=== PATIENT | male | born 1955 | race Caucasian/White ===

== ENCOUNTER 2019-04-28 08:32 | Outpatient (CLI) | payer OTHER, SELFPAY ==
--- NOTE | ~2019-04-28 | CT_ITS ---
EXAMINATION: CTA chest DATE: 04/28/2019 09:04 INDICATION: Ascending aortic aneurysm. TECHNIQUE: Computed tomographic angiography (CTA) of the chest was performed with 100 mL Omnipaque-35 0 intravenous contrast. Automated exposure control and iterative reconstruction technique were employ ed. The dose-length product was 1067.06 mGy-cm. Maximum intensity projection 3D-reconstructions of th e aorta and other arteries were constructed by the technologist on a separate workstation. COMPARISON: Chest CT 08/28/2016 FINDINGS: The lungs demonstrate mild atelectasis. No pleural effusion. The heart size is normal. No p ericardial effusion. The aorta measures 4.2 cm at the sinuses of Valsalva, 3.9 cm at the sinotubular junction, 4.6 cm in the mid ascending aorta, 3.2 cm at the isthmus, and 2.9 cm in the mid descending aorta. There are no pathologically enlarged lymph nodes. There are old fractures of left eighth and n inth ribs. There is severe thoracic spondylosis. IMPRESSION: 1. Ectasia of ascending aorta measuring 4.6 cm, slightly increased from 4.4 cm on 08/28/2016. Reviewed, dictated and finalized at location A. PMENT SERVICE TECHNICIAN
[2019-04-28 08:58] LABS: Blood Urea Nitrogen 27 mg/dL (8-26); Estimated Glomerular Filt Rate > 60
== END 2019-04-28 08:33 | disposition home or self-care (01) ==
PROVIDERS: PCP Emergency Medicine; Visit Provider Internal Medicine Cardiovascular Disease
DX: I71.2 Thoracic aortic aneurysm, without rupture (principal)
CPT/HCPCS: 71275; Q9967

== ENCOUNTER 2019-10-23 18:26 | Inpatient (IN) | payer OTHER, SELFPAY ==
[2019-10-23] VITALS (13 sets, daily range): BP systolic 101–131; BP diastolic 65–93; PULSE 107–133; RESP 16–21; TEMP 36.2–36.9; O2SAT 94–97; BMI 37.8
--- NOTE | ~2019-10-23 | XR_ITS ---
EXAMINATION: XR chest 2V EXAM DATE: 10/23/2019 18:59 INDICATION: Weakness. TECHNIQUE: Frontal and lateral projections of the chest obtained and reviewed. Comparison is made to prior examination from 06/14/2013. FINDINGS: Heart is upper limits of normal in size. No confluent consolidation, pneumothorax or pleur al effusion suspected. There are mild bony degenerative changes. IMPRESSION: No acute cardiopulmonary findings. Reviewed, dictated and finalized at location A.
--- NOTE | ~2019-10-23 | CT_ITS ---
EXAMINATION: CTA chest PE protocol DATE: 10/24/2019 10:40 INDICATION: Dyspnea on exertion. Atrial fibrillation. TECHNIQUE: Computed tomography (CT) pulmonary angiogram of the chest was performed with 100 mL Omnipa que-350 intravenous contrast. Additional 3D reconstructions utilizing coronal maximum intensity proje ction (MIP) were performed. Automated exposure control and iterative reconstruction technique were em ployed. The dose-length product was 913.88 mGy-cm. COMPARISON: None FINDINGS: Excellent contrast opacification of the pulmonary arteries. There is mild streak artifact from dense contrast in the superior vena cava and right atrium. Mild to moderate scattered respiratory motion ar tifact most prominent in the lower lung zones where it limits evaluation of the basilar segmental and subsegmental pulmonary arteries. No definite pulmonary embolism. Mild dependent atelectasis in the b ilateral lower lobes. No pneumonia, pleural effusion or pneumothorax. Cardiomegaly. No pericardial ef fusion. Fusiform aneurysm of ascending thoracic aorta measuring up to 4.6 cm in maximal diameter. No pathologically enlarged thoracic lymphadenopathy. Diffuse hepatic steatosis. T2 hemangioma. IMPRESSION: 1. No pulmonary embolism although sensitivity is significantly decreased in the basilar segmental and subsegmental pulmonary arteries due to respiratory motion in the lower lungs. 2. Moderate cardiomegaly. 3. 4.6 cm fusiform ascending thoracic aortic aneurysm. Reviewed, dictated and finalized at location A. IMPRESSION: 1. No pulmonary embolism although sensitivity is significantly decreased in the basilar segmental and subsegmental pulmonary arteries due to respiratory motio n in the lower lungs. 2. Moderate cardiomegaly. 3. 4.6 cm fusiform ascending thoracic aortic aneurysm.
--- NOTE | 2019-10-23 18:35 | ECG_ITS ---
Measurements Intervals Robson Rate: 135 P: IN: 0 QRS: 18 QRSD: 105 T: -1 QT: 305 QTc: 457 Interpretive Statements ATRIAL FIBRILLATION WITH RAPID VENTRICULAR RESPONSE BORDERLINE T WAVE ABNORMALITY- INFERIOR LEADS ABNORMAL ECG Electronically Signed On 10-23-2019 19:38:13 CDT by Nasir Salmon D.O.
[2019-10-23 18:47] LABS: Basophils Percent Auto 0.4 % (0.2-1.2); Eosinophils Absolute Auto 0.2 K/mm3 (0-0.3); Eosinophils Percent Auto 2.6 % (0-4.4); Hematocrit 46.5 % (42.0-52.0); Hemoglobin 15.7 g/dL (14.0-18.0); Immature Granulocyte Absolute 0.02 K/mm3 (0.00-0.031); Immature Granulocyte Percent A 0.3 % (0-0.5); Lymphocytes Absolute Auto 3.05 K/mm3 (0.9-3.2); Lymphocytes Percent Auto 41.5 % (18.3-44.2); Mean Corpuscular HGB Conc 33.8 g/dl (32-36); Mean Corpuscular Hemoglobin 31.2 pg (26-34); Mean Corpuscular Volume 92.3 fl (80-100); Monocytes Absolute Auto 0.6 K/mm3 (0.1-0.6); Monocytes Percent Auto 8.3 % (2.6-8.5); Neutrophils Absolute Auto 3.5 K/mm3 (1.3-6.7); Neutrophils Percent Auto 46.9 % (45.5-73.1); Platelet Count Result 261 k/mm3 (150-375); Red Blood Count 5.04 M/mm3 (4.6-6.20); Red Cell Distribution Width 13.1 % (11.5-14.5); White Blood Count 7.4 K/mm3 (4.5-10.0)
[2019-10-23] MEDS: dilTIAZem HCl INJ 25 MG/5 ML VIAL 10 MG IV PUSH ×2 (18:50→19:25)
--- NOTE | 2019-10-23 18:52 | PC.NURSE ---
Pt to XRAY via stretcher on tele monitor.
[2019-10-23 18:59] LABS: Partial Thromboplastin Time 29.4 SECONDS (22.3-36.8); Prothrombin Time 12.9 Seconds (11.1-14.7)
[2019-10-23 19:05] LABS: Alanine Aminotransferase 28 U/L (4-50); Albumin Level 4.5 g/dL (3.5-5.1); Alkaline Phosphatase 90 U/L (38-126); Anion Gap 12 mmol/L (8-16); Aspartate Amino Transferase 37 U/L (17-59); Bilirubin,Total 0.5 mg/dL (0.2-1.3); Blood Urea Nitrogen 17 mg/dL (9-20); Calcium 9.6 mg/dL (8.4-10.2); Carbon Dioxide 23 mmol/L (22-30); Chloride 108 mmol/L (98-107); Estimated CRCL calculation 86 ml/min; Estimated Glomerular Filt Rate > 60; Glucose 102 mg/dL (75-110); Potassium 3.8 mmol/L (3.4-5.0); Sodium 143 mmol/L (137-145)
--- NOTE | 2019-10-23 19:15 | PC.NURSE ---
Assumed care of pt at this time. Report from EMERALD King
[2019-10-23] MEDS: SODIUM CHLORIDE 0.9% IV 1,000 ML 999 ML IV CONT (19:17)
--- NOTE | 2019-10-23 19:20 | ED.WEAKNESS ---
HPI - Weakness General Chief complaint: Weakness Stated complaint: LOWER EXT WEAKNESS [id number] Time Seen by Provider: 10/23/19 19:04 History of Present Illness HPI Narrative: Patient presents with his for increasing weakness. In the last couple weeks he noticed pain in his knees and hips whenever he had to squat down and get back. He also has pain in his low back which radiates to the right hip and into the right groin where he previously had inguinal hernia repair. He has not had any fever chills sweats or cough. He has a chronic A. fib and sometimes his heart rate is above 100 just with regular activity. He said usually it runs in the 90s. He has had no shortness of breath. No confusion. 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 He takes prescription medicine for A. fib, blood pressure, ulcerative colitis, Surgeries include bilateral inguinal hernia repair. He does not smoke cigarette, he drinks 1 or 2 bourbon a day, he does not do marijuana. MD Complaint: generalized weakness and difficulty walking Onset (ago): week(s) Duration: intermittent Location: generalized Severity: moderate Relieving factors: rest Exacerbating factors: exertion Associated symptoms: denies other symptoms Related Data Home Medications Medication Instructions Recorded Confirmed pramipexole 0.5 mg tablet 0.5 mg PO DAILY tablet 01/24/19 tadalafil 5 mg tablet See Rx Instructions .ROUTE .COMPLEX 03/12/19 Allergies Allergy/AdvReac Type Severity Reaction Status Date / Time No Known Allergies Allergy Verified 10/23/19 18:38 Review of Systems Review of Systems: Narrative: CONSTITUTIONAL: Denies fever, chills, or sweats. EYES: Denies visual changes, redness, or discharge. ENT: Denies rhinorrhea, congestion, sore throat, or otalgia. CARDIOVASCULAR: Denies chest pain, palpitations, or edema. RESPIRATORY: Denies cough or dyspnea. GASTROINTESTINAL: Denies abdominal pain, nausea, vomiting, or diarrhea. GENITOURINARY: Denies dysuria or hematuria. SKIN: Denies rash or itching. MUSCULOSKELETAL: Denies back pain, joint pain, or myalgia. NEUROLOGIC: Denies headache, numbness, but he does have generalized weakness. PSYCHIATRIC: Denies anxiety or depression. All systems reviewed & are unremarkable except as noted in HPI and below PMFSH Past Medical History Medical History HLD (hyperlipidemia) Hyperglycemia Surgical History Surgical History History of bilateral inguinal hernia repair Social History Social History (Updated 10/23/19 @ 19:23 by Makenzie Orozco MD) Smoking status: Never smoker Alcohol intake: current Alcohol use details: 1-2 bourbon a day Gender identity (if verbalized by the patient): Male Exam Narrative: Exam Narrative: GENERAL: Well-appearing, well-nourished, and in no acute distress. Sunburn, overweight HEAD: Normocephalic, atraumatic. EYES: PERRLA and EOMI. ENT: Nares clear, no rhinorrhea or epistaxis. Mucous membranes moist. NECK: Supple. CHEST: Clear to auscultation. No respiratory distress. HEART: Irregular rate and rhythm. No murmur heard. Normal peripheral pulses. ABDOMEN: Soft, nontender, nondistended, normal active bowel sounds. EXTREMITIES: Normal range of motion. No edema. SKIN: Warm, dry, no rash. NEURO: No focal deficits. Alert and oriented x3. PSYCH: Normal mood and affect. Const: General: no acute distress and alert Orientation/consciousness: patient oriented x3 Course Consultations Consultation #1: Call Dr. Salazar for cardiology consult Date: 10/23/19 Time: 19:25 Consultation #2: Dr. Kelly Carrasquillo returned the call. She agrees to consult tomorrow. Date: 10/23/19 Time: 19:47 Consultation #3: Call Dr. Chase for admission. Date: 10/23/19 Time: 19:47 Additional Consultation(s): Dr. Brito called back and accepts the admission. Vital Signs Vital signs: Vital Signs Temperature 98.5 F 10/23/19 18:
[2019-10-23 19:39] LABS: NT Pro B Type Natriuretic Pept 565 PG/ML (5-100); Troponin I < 0.012 ng/mL (0.000-0.034)
--- NOTE | 2019-10-23 19:49 | PC.NURSE ---
Pt. Stood up for urine sample. Unable to void at this time.
--- NOTE | 2019-10-23 20:20 | PC.NURSE ---
Pt stood up to void, Unable to urinate at this time.
--- NOTE | 2019-10-23 21:12 | ADMGEN ---
This patient, Humberto Moreau, was admitted to IMU Room 203-01. Patient/family oriented to hospital policies and general routines including ID bracelet, bed and alarms, visiting hours, pain management, procedures, bathroom and other care routines, personal items, smoking policy, room service/diet, and visiting hours. Valuables list has been completed. Information on how to activate the Rapid Response Team has been discussed. Patient/Family are encouraged to report perceived risks to care and to ask questions if they do not understand what they are told or what they should do.
--- NOTE | 2019-10-23 21:43 | PM.IMHP ---
H&P: HPI History of Present Illness Date/Time: 10/23/19 21:43 Chief complaint: Weakness Narrative: Humberto Moreau is a 64 year old male with a past medical history hypertension, atrial fibrillation, and daily alcohol use who presented to the ER with generalized weakness. the patient reports that for the last 2 weeks he has noticed his legs feeling weaker. He was going out to dinner with his this evening when he was having trouble picking up his legs in his knees were giving out. His convinced him to come to the ER. He has also been having some increased shortness of breath with exertion. He has chronic atrial fibrillation and does not feel his heart racing her having palpitations. He denies any orthopnea or paroxysmal nocturnal dyspnea and is compliant with his CPAP therapy. He denies any chest pain. He denies any extremity weakness. He has not had any facial asymmetry , difficulty speaking, difficulty with coordination, headaches or neurologic changes. He does have ulcerative colitis and has chronic loose stools in mucousy stools but denies any gross hematochezia. He is not on chronic anticoagulation due to bleeding risk with his ulcerative colitis. he denies any dysuria or hematuria. He does drink 2 shots of alcohol each day. He did drink alcohol much heavier in the past. He reports feeling well rested when he wakes up. His last sleep study was some around 2013. Review of Systems Review of Systems: Narrative: 12 systems were reviewed with pertinent positives and negatives per HPI. Except as documented in the HPI, all other systems were reviewed and are negative. [facility] Past Medical History Medical History (Updated 10/23/19 @ 23:36 by Sarah Brito DO) Abdominal aortic aneurysm (AAA) ectasias of the ascending aorta measuring 4.6 cm on imaging April 2019 Cataract, right eye the patient states he needs surgery but is in the process being evaluated for a new treatment for retinal detachment 1st Chronic alcohol use Chronic atrial fibrillation since [address] Francisco Salazar. Last echocardiogram April 2019 demonstrated normal ejection fraction, mild LVH, indeterminate diastolic function, normal global left ventricular systolic function, mild to moderate right atrial enlargement, mild mitral valve regurgitation, RVSP of 36, mild tricuspid regurgitation Cyst of left kidney GERD (gastroesophageal reflux disease) HLD (hyperlipidemia) Hyperglycemia normal hemoglobin A1c of 5.22 June 2019 Obesity (BMI 30-39.9) with metabolic syndrome hemoglobin A1c 5.22 June 1999 Obstructive sleep apnea on CPAP Restless leg syndrome Retinal detachment, right with markedly decreased vision Ulcerative colitis Surgical History Surgical History (Updated 10/23/19 @ 23:28 by Sarah Brito DO) History of bilateral inguinal hernia repair April 2015 History of corneal transplant left eye History of left cataract extraction History of lumbar surgery History of umbilical hernia repair Family History Family History (Updated 10/23/19 @ 21:52 by Sarah Brito DO) Mother Malignant melanoma Breast cancer Father Acute myocardial infarction Dementia Social History Social History (Updated 10/23/19 @ 23:24 by Sarah Brito DO) Social History: Primary care physician: Dr. Eliazra Carter Code status: Full code Smoking status: Never smoker Alcohol intake: current Drinks per week: 8 Alcohol use details: 1-2 bourbon a day Substance use: never Living arrangements: with family Additional living arrangements comments: The patient lives with his of 22 years. He has 3 biologic children and 2 step children. He has an older brother with multiple medical conditions but the patient does not know what his brothers medical conditions are. Additional occupation/education comments: Patient is still working as a vocal artist. Gender identity (if verbaliz
[2019-10-23 22:57] LABS: Troponin I < 0.012 ng/mL (0.000-0.034)
[2019-10-23 23:39] LABS: Add Urine Microscopic? YES; Appearance Urine Clear (Clear); Bacteria Urine Trace /hpf; Bilirubin Urine Negative (Negative); Blood Urine Negative (Negative); Color Urine Amber (Yellow); Glucose Urine UA Negative (Negative); Ketones Urine Trace mg/dL (Negative); Leukocyte Esterase Ur Negative LEU/UL (Negative); Mucus Urine Moderate /lpf; Nitrate Urine Negative (Negative); Protein Urine Negative (Negative); RBC Urine 0-2 /hpf (0-2); Specific Grav Ur 1.035 (1.001-1.035); Squamous Epithelial Cell Urine Rare /hpf (Few); Urobilinogen Urine Negative mg/dL (<2.0)
[2019-10-23] MEDS: PRAMIPEXOLE 0.5 MG TABLET PO (23:46)
[2019-10-23] MEDS: METOPROLOL TARTRATE 50 MG TAB 100 MG PO (23:46)
[2019-10-24] VITALS (17 sets, daily range): BP systolic 108–139; BP diastolic 71–88; PULSE 72–117; RESP 18; TEMP 36.1–36.6; O2SAT 92–98
[2019-10-24 01:43] LABS: Troponin I < 0.012 ng/mL (0.000-0.034)
[2019-10-24] MEDS: SODIUM CHLORIDE 0.9% IV 1,000 ML 75 ML IV CONT (06:22)
[2019-10-24] MEDS: ATORVASTATIN 10 MG TABLET PO (08:11)
[2019-10-24] MEDS: METOPROLOL TARTRATE 50 MG TAB 100 MG PO ×2 (08:11→20:49)
[2019-10-24 09:05] LABS: D Dimer 0.61 ug/mL (<0.48)
--- NOTE | 2019-10-24 09:15 | WPDCN ---
Assessment and Plan Assessment and plan (1) Atrial fibrillation with RVR: Code(s): I48.91 - Unspecified atrial fibrillation Status: Acute Assessment and Plan: Patient admitted with generalized weakness, WEAVER, mild CHF and AFib RVR. I can't find any particular exacerbating event such as infection, new murmur, noncompliance is cetera. Perhaps his heart rate has just not been well controlled and he has gradually gone into heart failure which, in turn, aggravated his AFib rate. Doubt his leg weakness is due to stroke. recheck echo since there is a change in patient's clinical status check TSH continue metoprolol 100 mg b.i.d. and transition IV Cardizem to p.o. for rate control previously thought not to be a candidate for anticoagulation because of also have colitis and GI bleed. CHADS2 Vasc score is now 2 for age + CHF. (2) Congestive heart failure: Qualifiers: Heart failure chronicity: unspecified Heart failure type: unspecified Qualified Code(s): I50.9 - Heart failure, unspecified Code(s): I50.9 - Heart failure, unspecified Status: Acute Assessment and Plan: mild CHF on admission, probably acute diastolic failure secondary to AFib RVR. Re-evaluate LV function with an echo new line getting normal saline at 75 mL/hour, will DC this period (3) Obstructive sleep apnea: Code(s): G47.33 - Obstructive sleep apnea (adult) (pediatric) Status: Acute Assessment and Plan: Compliant with CPAP (4) HLD (hyperlipidemia): Code(s): E78.5 - Hyperlipidemia, unspecified Status: Acute Assessment and Plan: takes atorvastatin HPI Data of Consult Date/Time: 10/24/19 09:15 Requesting Physician: Rhoda Haynes PA-C Primary Care Provider: Eliazar Carter MD Consult Narrative Narrative: Date of service: 10/24/2019 Humberto Moreau is a 64 year old male Whom I was asked to see at the request of Dr. knox in for my advice and opinion regarding the patient's AFib RVR. He is followed for his chronic AFib by Dr. Salazar. he is not anticoagulated because of history of GI bleed secondary to ulcerative colitis. He also has a small ascending aortic aneurysm,ulcerative colitis, obesity, hyperlipidemia and sleep apnea on CPAP. the patient was last seen by Dr. Salazar in April; heart rate was 97 so his metoprolol was increased to: 100 mg b.i.d.. Echo and CTA as below. 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 He was working hard, kneeling and standing about 60 times and was exhausted and short of breath with weak knees and back pain at the end of the day. Since then he has found that he has had problems with bilateral leg weakness, difficulty walking and perhaps a little more WEAVER and fatigue. Yesterday he could barely walk at all, shuffling his feet, is felt like he had little control where his feet were With bilateral weakness,but there was no unilateral lower extremity weakness or upper extremity problems. No chest pain or palpitations, no dizziness. Heart rate is still running 95-110 beats per minute on Cardizem 10 milligrams/hour drip. He has been compliant with his CPAP and is metoprolol 100 mg b.i.d.; the pills do not look any different than they always have. He does have chronic WEAVER. His also colitis has been under good control. No history of any thyroid problems, denies any fevers or cough. Review of Systems Constitutional: Constitutional: Reports fatigue and Reports lethargy Eyes: Eyes: Reports no additional eye complaints ENT: Denies nasal congestion Cardiovascular: Cardiovascular: Denies chest pain, Reports diaphoresis ( Chronic sweating), Denies pedal
--- NOTE | 2019-10-24 11:53 | PM.IMPN ---
Progress Note: A&P Assessment and Plan (1) Atrial fibrillation with RVR: Code(s): I48.91 - Unspecified atrial fibrillation Status: Acute Assessment and Plan: The patient's dyspnea and shortness of breath is due to uncontrolled atrial fibrillation with rapid ventricular response. The patient's rate was up in the mid 120s and his Cardizem drip had been increased to [address] Carrasquillo evaluated the patient and recommended checking TSH, Echocardiogram and to continue Metoprolol Tartrate 100 mg BID and transition from IV Cardizem to PO for rate control. The patients CHADS2 Vasc Score is a 2 but due to history of GI bleeding in he past he is not on anticoagulation Tele shows Afib with HR at 79-94 bpm otherwise no acute abnormality. continue monitoring the patient. Appreciate cardiology's input medication adjustments. (2) Cardiomegaly: Code(s): I51.7 - Cardiomegaly Status: Acute Assessment and Plan: patient found to have moderate cardiomegaly and most likely has underlying congestive heart failure Or it could be secondary to AFib with RVR. Plan for an echocardiogram to be completed continue monitoring the patient and cardiology's input is greatly appreciated. (3) SOB (shortness of breath): Code(s): R06.02 - Shortness of breath Status: Acute Assessment and Plan: Patient reported worsening dyspnea on exertion and weakness to his legs upon arrival. His D-dimer was slightly elevated at 0.61 so at CTA chest was ordered To rule out PE. CTA showed no acute pulmonary embolism but found a thoracic ascending aortic aneurysm along with moderate cardiomegaly. Shortness of breath is improved today and most likely related to uncontrolled AFib RVR. Continue monitoring patient's symptoms during hospitalization. (4) Thoracic ascending aortic aneurysm: Code(s): I71.2 - Thoracic aortic aneurysm, without rupture Status: Acute Assessment and Plan: CTA showed 4.6 cm fusiform ascending thoracic aortic aneurysm. 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 appreciate cardiology's input. (5) Obstructive sleep apnea: Code(s): G47.33 - Obstructive sleep apnea (adult) (pediatric) Status: Acute Assessment and Plan: CPAP has been ordered. (6) HLD (hyperlipidemia): Code(s): E78.5 - Hyperlipidemia, unspecified Status: Acute Assessment and Plan: Continue on statin medication. Time Spent With Patient Time with patient: 25 - 35 minutes Subjective Date/time seen: 10/24/19 11:53 Interval history: * Review of Systems Review of Systems: All systems reviewed & are unremarkable except as noted in HPI and below Exam Narrative: Exam Narrative: General: *-year-old * laying flat in bed. Appears comfortable. In no acute distress. Skin: No jaundice or cyanosis. Good skin turgor. Neck: Full range of motion. Supple. Nontender. Respiratory: Lungs are clear to auscultation bilaterally. No bony chest wall tenderness. Cardiovascular: The heart has a regular rate and rhythm without murmur. No carotid bruits. Lower extremities: No lower extremity edema. Distal pulses are easily palpated. No calf tenderness to palpation. Gastrointestinal: The abdomen is soft, nontender and nondistended with active bowel sounds. Psychiatric: Lucid and oriented. Memory intact. Neurologic: No focal deficits. Speech is clear. No facial drooping. Objective Data Vital Signs Vital Signs: Vital Signs - 24 hr 10/23/19 1
[2019-10-24] MEDS: dilTIAZem HCL 60 MG TABLET BY MOUTH ×3 (13:35→23:23)
[2019-10-24] MEDS: ACETAMINOPHEN 325 MG TABLET 650 MG PO ×2 (13:35→20:53)
--- NOTE | 2019-10-24 13:36 | PHAR ---
Home medication verified by pharmacy: Balsalazide 750mg capsules take 3 capsules po tid rx#[id number]
[2019-10-24] MEDS: PRAMIPEXOLE 0.5 MG TABLET PO (20:49)
[2019-10-25] VITALS (11 sets, daily range): BP systolic 115–141; BP diastolic 70–86; PULSE 53–109; RESP 18–20; TEMP 35.8–36.9; O2SAT 94–96
--- NOTE | 2019-10-25 | ECHO_ITS ---
Patient Info Name: Humebrto Moreau Age: 64 years : 1955 Gender: Male Ht: 70 in Wt: 272 lbs BSA: 2.52 m2 HR: 80 bpm BP: 141 / 73 mmHg Heart Rhythm: Atrial Fibrillation Technical Quality: Good Exam Date: 10/25/2019 11:43 AM Exam Location: [facility] Patient Status: Inpatient Admit Date: 10/23/2019 Staff Ordering Physician: Kelly Carrasquillo MD Care Trainer: Dmitriy Baldwin RDCS Attending Provider: Rhoda Haynes PA-C Referring Physician: Foreign GONZALEZ; Exam Type: CA echo doppler color flow Study Info Indications I50.9 - Heart failure, unspecified Complete two-dimensional, color flow and Doppler transthoracic echocardiogram is performed. History/Risk Factors CHF w/ Afib; EtOH, WEAVER, cardiomegaly. Summary 1. Left ventricular chamber dimension is mildly enlarged. 2. Left ventricular systolic function is mildly reduced, estimated at 40-45%. 3. There is mild aortic valve sclerosis. 4. There is trace mitral valve regurgitation. 5. Biatrial dilation. Left Ventricle Left ventricular chamber dimension is mildly enlarged. Left ventricular systolic function is mildly reduced, estimated at 40-45%. Right Ventricle Right ventricular chamber dimension is mildly enlarged. Left Atria Left atrial chamber dimension is moderately enlarged. Right Atria Right atrial chamber dimension is mildly enlarged. Aortic Valve The aortic valve is trileaflet. There is mild aortic valve sclerosis. Pulmonic Valve The pulmonic valve is not well visualized. Mitral Valve The mitral valve has normal leaflets. There is trace mitral valve regurgitation. The mitral valve annulus is mildly calcified. Tricuspid Valve The tricuspid valve leaflets are normal. Pericardium/Pleural The pericardium appears normal. Aorta The aortic root size at the sinus of Valsalva is normal. Left Ventricular Outflow Tract Name Value Normal LVOT 2D LVOT Diameter 2.0 cm LVOT Doppler LVOT Peak Gradient 4 mmHg LVOT Mean Gradient 2 mmHg LVOT VTI 16 cm LVOT VTI/AV VTI Ratio 0.9 LVOT Stroke Volume 50 ml LVOT CO 3.2 l/min LVOT CI 1.3 l/min/m2 Mitral Valve Name Value Normal MV Doppler MV Decel [place] 728 cm/s2 MV PHT 36 ms MV Area (PHT) 6.1 cm2 4.0-5.0 MV Diastolic Function MV E Peak Velocity 91 cm/s MV A Peak Velocity 23 cm/s MV E/A 4.0 MV Decel Time
[2019-10-25] MEDS: dilTIAZem HCL 60 MG TABLET BY MOUTH (05:12)
[2019-10-25 05:25] LABS: Anion Gap 5 mmol/L (8-16); Blood Urea Nitrogen 13 mg/dL (9-20); Calcium 8.8 mg/dL (8.4-10.2); Carbon Dioxide 26 mmol/L (22-30); Chloride 106 mmol/L (98-107); Estimated CRCL calculation 107 ml/min; Estimated Glomerular Filt Rate > 60; Glucose 102 mg/dL (75-110); Potassium 3.9 mmol/L (3.4-5.0); Sodium 137 mmol/L (137-145)
[2019-10-25] MEDS: ATORVASTATIN 10 MG TABLET PO (08:20)
[2019-10-25] MEDS: METOPROLOL TARTRATE 50 MG TAB 100 MG PO (08:21)
--- NOTE | 2019-10-25 10:46 | PM.PNCARD ---
Progress Note: A&P Assessment and Plan (1) Atrial fibrillation with RVR: Code(s): I48.91 - Unspecified atrial fibrillation Status: Acute Assessment and Plan: Patient admitted with generalized weakness, WEAVER, mild CHF and AFib RVR. I can't find any particular exacerbating event such as infection, new murmur, noncompliance is cetera. Perhaps his heart rate has just not been well controlled and he has gradually gone into heart failure which, in turn, aggravated his AFib rate. Doubt his leg weakness is due to stroke. recheck echo since there is a change in patient's clinical status check TSH continue metoprolol 100 mg b.i.d. DC short-acting diltiazem. Start Cardizem CD 120 mg daily previously thought not to be a candidate for anticoagulation because of also have colitis and GI bleed. CHADS2 Vasc score is now 2 for age + CHF. would recommend a Watchman device as an outpatient. (2) Congestive heart failure: Qualifiers: Heart failure chronicity: unspecified Heart failure type: unspecified Qualified Code(s): I50.9 - Heart failure, unspecified Code(s): I50.9 - Heart failure, unspecified Status: Acute Assessment and Plan: mild CHF on admission, probably acute diastolic failure secondary to AFib RVR. Echo pending (3) Obstructive sleep apnea: Code(s): G47.33 - Obstructive sleep apnea (adult) (pediatric) Status: Acute Assessment and Plan: Compliant with CPAP (4) HLD (hyperlipidemia): Code(s): E78.5 - Hyperlipidemia, unspecified Status: Acute Assessment and Plan: takes atorvastatin Subjective Date/time seen: 10/25/19 10:46 Interval history: reason for admission/ chief complaint: Weakness, atrial fibrillation date of service 10/25/2019: He feels better today. Heart rate is controlled. No chest pain short of breath. Review of Systems Constitutional: Constitutional: Reports fatigue and Reports lethargy Eyes: Eyes: Reports no additional eye complaints ENT: Denies nasal congestion Cardiovascular: Cardiovascular: Denies chest pain, Reports diaphoresis ( Chronic sweating), Denies pedal edema, Reports leg edema, Denies lightheadedness, Denies palpitations, Reports dyspnea and Reports dyspnea on exertion Respiratory: Respiratory: Denies chest congestion, Denies cough, Reports dyspnea and Reports dyspnea on exertion Gastrointestinal: Gastrointestinal: Denies abdominal pain and Denies hematochezia Genitourinary: Genitourinary: Denies dysuria Musculoskeletal: Musculoskeletal: Reports back pain and Denies numbness Integumentary/Breasts: Skin/Breast: Denies rash Neurologic: Denies behavioral changes, Denies confusion and Denies numbness Psychiatric: Psychiatric: Denies behavioral changes and Denies confusion Endocrine: Endocrine: Reports fatigue and Denies palpitations Exam Narrative: Exam Narrative: Pleasant male sitting up in a chair, no distress Const: General: comfortable and no acute distress; No confusion Orientation/consciousness: No confusion HENMT: Mouth: Yes moist mucous membranes Eyes: EOM: EOMs intact bilaterally Neck: Neck: supple and No no JVD Carotids: no bruits Resp: Effort & Inspection: normal respiratory effort Auscultation: clear to auscultation bilaterally Cardio: Rhythm: abnormal rhythm irregularly irregular GI: Inspection: non-distended Skin: General skin exam: normal color and no rashes or lesions noted Neuro: General: No confusion Cognition (Neuro): normal cognition Speech: normal speech Motor exam (neuro): 5/5 motor strength present throughout and Normal motor muscle tone present throughout Extrem: General: edema ( trace pretibial edema) Psych: Mental Status: mental status grossly normal Affect: normal affect Objective Data Vital Signs
--- NOTE | 2019-10-25 15:17 | PM.DS ---
DS: Admitting Diagnosis Admitting Diagnosis Admitting Diagnosis: Unspecified atrial fibrillation DS: Discharge Diagnosis Discharge Diagnosis (1) Atrial fibrillation with RVR: Code(s): I48.91 - Unspecified atrial fibrillation Status: Acute Assessment and Plan: The patient's dyspnea and shortness of breath is due to uncontrolled atrial fibrillation with rapid ventricular response. TSH was normal Continue Metoprolol Tartrate 100 mg BID and Cardizem 120 mg The patients CHADS2 Vasc Score is a 2 but due to history of GI bleeding in he past he is not on anticoagulation Tele shows Afib with his heart rate better controlled without any acute abnormality. Cardiology feels stable for discharge at this time and will have him follow-up in their office in a few weeks to see for all to talk about a possible Watchman device for his atrial fibrillation. (2) Systolic CHF: Code(s): I50.20 - Unspecified systolic (congestive) heart failure Status: Acute Assessment and Plan: patient found to have moderate cardiomegaly and most likely has underlying congestive heart failure Or it could be secondary to AFib with RVR. Echocardiogram was completed and pending official read by roofing tile sorter but cardiology believes he is stable for discharge. Echo came back showing Left ventricular chamber dimension is mildly enlarged. Left ventricular systolic function is mildly reduced, estimated at 40-45%. There is mild aortic valve sclerosis. There is trace mitral valve regurgitation. Biatrial dilation. I talked to [facility] about this since he was being discharged and she felt he was stable for discharge because he has close follow up to see Dr. Salazar on 11/14. (3) SOB (shortness of breath): Code(s): R06.02 - Shortness of breath Status: Acute Assessment and Plan: Patient reported worsening dyspnea on exertion and weakness to his legs upon arrival. His D-dimer was slightly elevated at 0.61 CTA showed no acute pulmonary embolism but found a thoracic ascending aortic aneurysm along with moderate cardiomegaly. Shortness of breath is improved today and most likely related to uncontrolled AFib RVR. (4) Thoracic ascending aortic aneurysm: Code(s): I71.2 - Thoracic aortic aneurysm, without rupture Status: Acute Assessment and Plan: CTA showed 4.6 cm fusiform ascending thoracic aortic aneurysm. This is something that cardiology has been following up as an outpatient. Follow-up with cardiology with scheduled appointment for further evaluation. (5) Obstructive sleep apnea: Code(s): G47.33 - Obstructive sleep apnea (adult) (pediatric) Status: Acute Assessment and Plan: CPAP has been ordered. (6) HLD (hyperlipidemia): Code(s): E78.5 - Hyperlipidemia, unspecified Status: Acute Assessment and Plan: Continue on statin medication. DS: Summary Hospital Course Reason for hospitalization: the patient is a 64-year-old man with history of hypertension, atrial fibrillation not on anticoagulation due to history of GI bleed, daily alcohol use, who presented to the emergency department with generalized weakness to his bilateral legs as well as worsening dyspnea on exertion. Initial vitals showed temperature of 98.5?, blood pressure 131/88, tachycardic heart rate 124, respiratory rate 18, oxygen saturation 95% on room air. Initial labs showed CBC with differential, coag panel, CMP all were normal. Troponin was negative x3. BNP was slightly elevated at 565. Chest x-ray showed no acute cardiopulmonary findings. the patient was admitted into the [facility]
== END 2019-10-25 17:15 | disposition home or self-care (01) | DRG 309 ==
LOC: ANHED 20:12 → ANHIMU 20:41
PROVIDERS: Emergency Medicine; Admitting Provider Internal Medicine; Emergency Provider Emergency Medicine; PCP Emergency Medicine; Visit Provider Physician Assistant
DX: I48.91 Unspecified atrial fibrillation (principal); I50.20 Unspecified systolic (congestive) heart failure; E88.81 Metabolic syndrome and other insulin resistance; I71.2 Thoracic aortic aneurysm, without rupture; I51.7 Cardiomegaly; E66.9 Obesity, unspecified; G47.33 Obstructive sleep apnea (adult) (pediatric); Z68.37 Body mass index [BMI] 37.0-37.9, adult; E78.5 Hyperlipidemia, unspecified; Z98.42 Cataract extraction status, left eye; Z79.899 Other long term (current) drug therapy
CPT/HCPCS: 36415; 71046; 71275; 80048; 80053; 81001; 83880; 84443; 84484; 85025; 85380; 85610; 85730; 93005; 93306; 96365; 96376; 97161; 97165; 99285; A9270; J7030; Q9967

== ENCOUNTER 2019-11-24 08:23 | Outpatient (CLI) | payer OTHER, SELFPAY ==
--- NOTE | ~2019-11-24 | US_ITS ---
US arterial ankle brachial ind INDICATION: Claudication TECHNIQUE: Segmental pressures and plethysmographic and Doppler waveforms of the brachial and lower e xtremity arteries were obtained. COMPARISON: None. FINDINGS: Right and left brachial artery pressures of 120 mm Hg and 125 mm Hg, respectively, are concordant (no rmal difference <= 30 mmHg). The right ankle-brachial index (VENKATESH) is 1.16 (normal >= 0.9-1.0). The right great toe-brachial index (TBI) is 0.94 (normal >= 0.60). The left VENKATESH is 1.23. The left TBI is 1.07. IMPRESSION: 1. Normal ankle-brachial indices. Reviewed, dictated and finalized at location A.
== END 2019-11-24 08:24 | disposition home or self-care (01) ==
LOC: ANHIMG 08:25
PROVIDERS: Visit Provider Internal Medicine Cardiovascular Disease
DX: I73.9 Peripheral vascular disease, unspecified (principal)
CPT/HCPCS: 93922

== ENCOUNTER 2019-12-23 11:00 | Outpatient (RCR) | payer OTHER, SELFPAY ==
--- NOTE | 2019-11-09 14:01 | PTOPEVAL ---
INITIAL PHYSICAL THERAPY EVALUATION and PLAN OF CARE Thank you for referring Humberto Moreau to [facility].? Humberto is scheduled to be seen for physical therapy? 2x/week for 4 weeks. Please review, sign, date and return this plan of care IDA. I agree with and certify that the following plan of care is medically necessary. Referring Physician Date Admitting Provider: Attending Provider: Eliazar Carter MD Referring Provider: *PT Outpatient Evaluation Start: 11/09/19 12:49 Freq: Status: Active Protocol: Document 11/09/19 12:40 EMIL (Rec: 11/09/19 14:01 EMIL [email or web address]) Therapy Assessment Status Assessment Status Assessment Status Evaluation Evaluation Information Problem Diagnosis bilat LE weakness Onset later September 2019 Subjective Information Humberto was working on his boat Query Text:As Reported By Patient/ - kneeling/standing - had to Family get up down/standing up without UE support - 40-50 times in 3 hours - began to notice leg weakness - worsened by October 22 - went to ED - was diagnosed with afib which was attributed to LE weakness - getting treatment - legs beginning to get stronger but weakness remains. In addition - had some LBP which was attributed to mild CHF. Initially - first thing in morning - some balance issues, does better with taking longer steps than shorter ones , stairs - tries to go without railing - but occasionally needs to use, now is noticing that he is limping - thinks R LE is longer from TIGRE and that is more noticeable since late September 2019. 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 Home restless leg syndome Meds Must Be Re-entered With Each Visit. Home Setting Home Type House,Multiple Levels Environmental Barriers
--- NOTE | 2019-12-03 12:57 | PCPTNOTE ---
Patient called & cancelled scheduled appointment this date due to being in the ED for increased back pain.
--- NOTE | 2019-12-07 07:32 | PCPTNOTE ---
Patient called & cancelled scheduled appointment this date due to having conflict with another appointment.
--- NOTE | 2019-12-09 07:45 | PCPTNOTE ---
Patient called & cancelled scheduled appointment this date due to in the family.
--- NOTE | 2019-12-23 15:14 | PTOPEVAL ---
PHYSICAL THERAPY DISCHARGE SUMMARY Thank you for referring Humberto Moreau to [facility].? Humberto has been seen x 7 visits. He has met strength goals, and has progressed towards balance goals. He has been having increased pain with R hip as of late. His HEP was reviewed with him this date. He is ready for discharge from PT at this time. I agree with Humberto's discharge from PT. Referring Physician Date Admitting Provider: Attending Provider: Eliazar Carter MD Referring Provider: Document 12/23/19 11:10 EMIL (Rec: 12/23/19 12:06 EMIL [email or web address]) Therapy Assessment Status Assessment Status Assessment Status Discharge Evaluation Information Problem Subjective Information Humberto reports having more Query Text:As Reported By Patient/ pain lately in R hip - but now Family thinking it is from sciatica. Steroid injections and medication - helpful short term. Stair climbing - using reciprocal pattern but likes to use 1 railing at least. Needs to be careful with sit to stand - can get a catching sensation in R hip at times. Pain Assessment Timing of Pain Assessment Timing of Pain Assessment Assessment Pain Scale Pain Scale Used Numeric (1 - 10) Self Report Pain Assessment Right Hip(s) Reported Pain Level 0 Lowest Pain Intensity 0 Greatest Pain Intensity 10 Pain Score Pain Score 0: Self Report Lower Extremity Muscle Strength Testing Hip Strength Left Hip Flexion Strength 4 Good Hip Extension Strength 5 Normal Hip Abduction Strength 4- Good - Hip Medial Rotation Strength 4+ Good + Hip Lateral Rotation Strength 4+ Good + Right Hip Flexion Strength 5 Normal Hip Extension Strength 5 Normal Hip Abduction Strength 4 Good Hip Medial Rotation Strength 5 Normal Hip Lateral Rotation Strength 5 Normal Balance Assessment Functional Gait Assessment Gait Level Surface Mild Impairment Change in Gait Speed Normal Gait with Horizontal Head Turns Normal Gait with Vertical Head Turns Normal Gait and Pivot Turn Normal Steps Over Obstacles Normal Gait With Narrow Base of Support Moderate Impairment Gait With Eyes Closed Moderate Impairment Ambulating Backwards Mild Impairment Steps Mild Impairment Total Score (/30) 23 Rehab Teaching Rehab Teaching Teaching Topic Rehab Teaching
== END 2020-01-24 11:18 | disposition home or self-care (01) ==
LOC: ANHPT 11:00
PROVIDERS: Visit Provider Emergency Medicine
DX: R53.81 Other malaise (principal)
CPT/HCPCS: 97110; 97140; 97161

== ENCOUNTER → 2020-01-03 07:46 | Outpatient (CLI) | payer OTHER, SELFPAY ==
--- NOTE | ~2020-01-03 | MR_ITS ---
EXAMINATION: MR lumbar spine wo con DATE: 01/03/2020 08:32 INDICATION: Low back pain. TECHNIQUE: Magnetic resonance imaging (MRI) of the lumbar spine was performed without intravenous con trast. Sequences included sagittal T2-weighted FSE, sagittal T2-weighted FS FSE, sagittal T1-weighted FSE, and axial T2-weighted FSE. COMPARISON: None FINDINGS: There is 11 degrees dextroscoliosis of thoracolumbar spine. There is 3 mm retrolisthesis of L1 on L2, L2 on L3, and L3 on L4 and 3 mm anterolisthesis of L4 on L5. There are Schmorl's nodes at multiple levels. There is mild chronic anterior wedging of T11 vertebral body. There is moderately de creased disc height at L1-L2, severely decreased disc height at L2-L3, and moderately decreased disc height at L3-L4. The distal spinal cord signal intensity is normal. The conus medullaris is at T12. T he following disc levels are specifically discussed: L1-L2: The disc is bulging and has an annular fissure. There is mild bilateral facet joint osteoarthr itis. There is mild right and moderate left neural foraminal stenosis. There is mild central canal st enosis. L2-L3: The disc is bulging and has an annular fissure. There is severe bilateral facet joint osteoart hritis. There is moderate bilateral neural foraminal stenosis. There is mild central canal stenosis. L3-L4: The disc is bulging and has an annular fissure. There is severe right and mild left facet join t osteoarthritis. There is moderate right and mild left neural foraminal stenosis. There is mild cent ral canal stenosis. L4-L5: The disc is bulging and has an annular fissure. There is severe bilateral facet joint osteoart hritis. There is mild bilateral neural foraminal stenosis. There is mild central canal stenosis. L5-S1: The disc does not extend beyond the endplate margin. There is mild bilateral facet joint osteo arthritis. There is no neural foraminal stenosis. There is no central canal stenosis. IMPRESSION: 1. Severe lumbar spondylosis. 2. Thoracolumbar dextroscoliosis. Reviewed, dictated and finalized at location A.
== END ==
PROVIDERS: PCP Emergency Medicine; Visit Provider Emergency Medicine
DX: M47.896 Other spondylosis, lumbar region (principal)
CPT/HCPCS: 72148

== ENCOUNTER 2020-05-31 11:00 | Outpatient (RCR) | payer OTHER, SELFPAY ==
--- NOTE | 2020-05-03 12:26 | PTOPEVAL ---
PHYSICAL THERAPY EVALUATION Thank you for referring Humberto Moreau to [facility].? Jean-Paul was evaluated with a dx of back pain/gait and balance deficit. The patient is scheduled to be seen for therapy? 2 x/week for 4 weeks. Please review, sign, date and return this plan of care IDA. I agree with and certify that the following plan of care is medically necessary. 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 Last summer he was diagnosed with a-fib affecting LE circulation-causing changes in walking pattern. Patient also developed back pain after the event and learned he has severe OA in spine. The patient just had nerve ablasion at lumbar spine that has given about 50% relief of pain. Subjective Information The patient reports he is Query Text:As Reported By Patient/ improved but still feels a Family concern for possible falls due to gait deficit and lack of good reaction to tripping. The patient has had therapy for his legs last year but was limited in progress due to severity of back pain at that time. The back pain is much better and feels he can benefit better from therapy now to improve his gait and safety. Prior Level of Function Activity Level (Last 3 Months) Occupation office work, boating, plays bagpipes Hand Dominance Right Activity of Daily Living Ability Independent Indoor/Home Mobility Independent Community Mobility Independent Stairs Ability Independent Functional Cognition (Planning, Shopping Independent
--- NOTE | 2020-05-31 11:56 | PTOPEVAL ---
PHYSICAL THERAPY DISCHARGE SUMMARY Thank you for referring Humberto Moreau to [facility].? The patient has been seen 9 visits for PT and has met all of his goals. .D/C PT at this time. Please review, sign, date and return this plan of care. I agree with and certify the following plan of care. Referring Physician Date Attending Provider: Eliazar Carter MD *PT Outpatient Discharge Start: 02/04/20 09:26 Freq: Status: Active Protocol: Document 05/31/20 11:03 MLV (Rec: 05/31/20 11:55 [facility] [email or web address]) Assessment Status Discharge Evaluation Information Problem Diagnosis back pain with gait instability/fall risk Onset September 2019 Cause no injuries Additional Evaluation Detail Patient feels he is more flexible and his balance with daily activities has improved. Patient feels he can continue on his own but will call if issues arise. Patient has an MD follow up in 1-2 months. Pain Assessment Timing of Pain Assessment Timing of Pain Assessment Assessment Pain Scale Pain Scale Used Numeric (1 - 10) Self Report Pain Assessment Lower Back Reported Pain Level 0 Pain Frequency Chronic Greatest Pain Intensity 3 Pain Score Pain Score 0: Self Report Interventions Used Interventions Used By Clinicians Exercise,Heat,Manual Therapy Techniques Pain Relief Interventions Used By Heat,Inactivity/Rest,Position Patient Change Cervical and Lumbar ROM Lumbar ROM Lumbar Flexion (0-90) 35 Query Text:Active in Degrees Lumbar Flexion Active [place] Query Text:Hands to: Lumbar Lateral Flexion Right (0-40) 40 Query Text:Active in Degrees Lumbar Lateral Flexion Left (0-40) 40 Query Text:Active in Degrees Lower Extremity Muscle Strength Testing General Lower Extremity Strength Gross Lower Extremity Strength speed of motion at toe tapping improved to 100%; nieto test equal and normal; Muscle Length Testing Muscle Length Testing Left Hamstring Length -26 Query Text:(90 - 90 Position) Right Hamstring Length -30 Query Text:(90 - 90 Position) Balance Assessment Benjamin Balance Assessment Sitting to Standing Independent w/out Hands Unsupported Stance Ability Safely- 2 minutes Sitting Unsupported, Feet on Floor Safely- 2 minutes Standing to Sitting Safely, Minimal Hand Use Transfer Ability Safely, Mi
== END 2020-06-01 10:19 | disposition home or self-care (01) ==
LOC: ANHPT 11:00
PROVIDERS: PCP Emergency Medicine; Visit Provider Emergency Medicine
DX: M54.16 Radiculopathy, lumbar region (principal); M47.816 Spondylosis without myelopathy or radiculopathy, lumbar region; S39.012D Strain of muscle, fascia and tendon of lower back, subsequent encounter; R53.81 Other malaise
CPT/HCPCS: 97110; 97140; 97162

== ENCOUNTER 2020-12-19 07:45 | Outpatient (CLI) | payer OTHER, SELFPAY ==
--- NOTE | ~2020-12-19 | CT_ITS ---
EXAMINATION: CTA chest EXAM DATE: 12/19/2020 08:16 INDICATION: Thoracic aortic aneurysm, known TECHNIQUE: Spiral CT of the chest following intravenous injection of 100 mL Omnipaque 350. Axial, c oronal and sagittal images of the chest were reviewed. Coronal maximum intensity pixel images of aspen st reviewed. Maximum intensity projection 3-D reconstructions of the aorta were created by the techno logist on dedicated workstation. The dose-length product (DLP) for this examination was 1027.58 mGy- cm. The exposure was tailored according to patient size (auto mA exposure control), and iterative re construction (ASIR) was used as additional dose reduction technique. Comparison is made to prior exam ination from 10/24/2019, 04/28/2019. FINDINGS: The ascending aorta measures 4.8 cm, minimally increases compared to 2020. There is no diss ection. The lungs are clear. There are no pleural or pericardial effusions. Tracheobronchial bin e is patent. There is no mediastinal, hilar or axillary lymphadenopathy. There is no pneumothorax . There is cardiomegaly. No evidence of coronary arterial calcification. Upper abdomen is unremar kable. There is thoracic spondylosis without osteoblastic or osteolytic lesions identified. IMPRESSION: 1. Ascending aortic 4.8 cm aneurysm, minimal increase in size. 2. Cardiomegaly. Reviewed, dictated and finalized at location A.
[2020-12-19 08:10] LABS: Estimated Glomerular Filt Rate > 60
== END 2020-12-19 07:46 | disposition home or self-care (01) ==
LOC: ANHIMG 07:46
PROVIDERS: PCP Emergency Medicine; Visit Provider Internal Medicine Cardiovascular Disease
DX: I71.4 Abdominal aortic aneurysm, without rupture (principal)
CPT/HCPCS: 71275; Q9967

== ENCOUNTER 2021-02-22 00:14 | Day surgery (SDC) | payer OTHER, SELFPAY ==
[2021-02-11 14:35] VITALS: BMI 36.8
[2021-02-12 11:50] VITALS: BMI 36.8
[2021-02-22 07:26] VITALS: BP 141/84; PULSE 98; RESP 22; TEMP 36.8; O2SAT 97; BMI 38.0
[2021-02-22] MEDS: LACTATED RINGERS 1,000 ML 150 ML IV CONT (07:37)
--- NOTE | 2021-02-22 07:47 | WPDANESEPPF ---
Anes - Initial Pre Proc Eval Procedure: Operation Date: 02/22/21 08:30 Proposed Procedures p Colonoscopy - Ahsan Frank MD Date/Time: 02/22/21 07:47 Surgeon: Ahsan Frank MD Pre Op Diagnosis: ulcerative colitis Patient Data Age: 66 Gender: M Height: 1.8 m Weight: 123.6 kg Last Vital Signs Temp 36.8 C 02/22/21 07:26 Pulse 98 02/22/21 07:26 Resp 22 H 02/22/21 07:26 BP 141/84 H 02/22/21 07:26 Pulse Ox 97 02/22/21 07:26 Allergies Allergy/AdvReac Type Severity Reaction Status Date / Time No Known Allergies Allergy Verified 02/22/21 07:24 Home Medications Medication Instructions Recorded Confirmed Type balsalazide 750 mg capsule 2,250 mg PO TID #810 cap 01/27/19 02/12/21 Rx diltiazem HCl 120 mg PO QAM #30 cap 10/25/19 02/12/21 Rx atorvastatin 20 mg tablet 20 mg PO DAILY 07/19/20 02/12/21 History ropinirole 3 mg tablet 3 mg PO BID #180 tablet 10/16/20 02/12/21 Rx metoprolol tartrate 100 mg tablet 150 mg PO BID tablet 11/15/20 02/12/21 History apixaban 2.5 mg tablet 2.5 mg PO BID 12/27/20 02/12/21 History acetaminophen 650 mg PO Q6H PRN 02/12/21 02/12/21 History cholecalciferol (vitamin D3) 25 mcg PO DAILY 02/12/21 02/12/21 History [Vitamin D3] multivit with min-folic acid 1 tablet PO DAILY 02/12/21 02/12/21 History [Adult One Daily Multivitamin] Patient hx anesthesia problems: none Family hx anesthesia problems: none Results Review: All pre-operative results and documents have been reviewed as part of the pre-operative evaluation. [facility] Past Medical History Medical History Abdominal aortic aneurysm (AAA) ectasias of the ascending aorta measuring 4.6 cm on imaging April 2019 Abdominal wall hernia Bursitis of left elbow Cataract, right eye the patient states he needs surgery but is in the process being evaluated for a new treatment for retinal detachment 1st Chronic alcohol use Chronic atrial fibrillation since [address] Francisco Salazar. Last echocardiogram April 2019 demonstrated normal ejection fraction, mild LVH, indeterminate diastolic function, normal global left ventricular systolic function, mild to moderate right atrial enlargement, mild mitral valve regurgitation, RVSP of 36, mild tricuspid regurgitation Cyst of left kidney Cyst of left kidney FHx: cataracts GERD (gastroesophageal reflux disease) Heart palpitations HLD (hyperlipidemia) Hyperglycemia normal hemoglobin A1c of 5.22 June 2019 Obesity (BMI 30-39.9) with metabolic syndrome hemoglobin A1c 5.22 June 1999 Obstructive sleep apnea on CPAP Restless leg syndrome Retinal detachment, right with markedly decreased vision Systolic CHF Ulcerative colitis Surgical History Surgical History History of bilateral inguinal hernia repair April 2015 History of corneal transplant left eye History of left cataract extraction History of lumbar surgery History of umbilical hernia repair Family History Family History Mother Malignant melanoma Breast cancer Father Acute myocardial infarction Dementia Social History Social History Social History: Primary care physician: Dr. Eliazar Carter Code status: Full code Smoking status: Never smoker Alcohol intake: current Drinks per week: 5 Alcohol use details: 1-2 bourbon a day Substance use: never Living arrangements: with family Additional living arrangements comments: The patient lives with his of 22 years. He has 3 biologic children and 2 step children. He has an older brother with multiple medical conditions but the patient does not know what his brothers medical conditions are. Enjoys boating near [place]. Additional occupation/education comments: [employer]
--- NOTE | 2021-02-22 07:55 | WPDGICN ---
Assessment and Plan Assessment and plan (1) Ulcerative colitis, unspecified, without complications: Code(s): K51.90 - Ulcerative colitis, unspecified, without complications Status: Acute Assessment and Plan: Patient with long history of ulcerative colitis. Currently felt to be stable. Currently managed with balsalazide. He is felt to be in clinical remission. Plan is for surveillance colonoscopy at this time and should be considered at intervals in the future. (2) Afib: Qualifiers: Atrial fibrillation type: unspecified chronic Qualified Code(s): I48.20 - Chronic atrial fibrillation, unspecified Code(s): I48.91 - Unspecified atrial fibrillation Status: Acute Assessment and Plan: Patient with atrial fibrillation for which she is on chronic Eliquis anticoagulation. Anticoagulation will need to be held briefly for endoscopy. GI Consult Note Consult date/time: 02/22/21 07:55 HPI: Humberto Moreau is a 66 year old male Presents for screening colonoscopy. Patient has a known history of ulcerative colitis. Currently maintained on balsalazide. He has been stable typically. He has infrequent episodes of loose stools and minimal rectal bleeding. He currently denies abdominal pain. It has been sometime since last flare-up disease. His last colonoscopy in 2012. Patient presents today for surveillance examination. Patient does report a prior history of atrial fibrillation for which she is now on Eliquis anticoagulation. Review of Systems Review of Systems: All systems reviewed & are unremarkable except as noted in HPI and below PMFSH Past Medical History Medical History Abdominal aortic aneurysm (AAA) ectasias of the ascending aorta measuring 4.6 cm on imaging April 2019 Abdominal wall hernia Bursitis of left elbow Cataract, right eye the patient states he needs surgery but is in the process being evaluated for a new treatment for retinal detachment 1st Chronic alcohol use Chronic atrial fibrillation since [address] Francisco Salazar. Last echocardiogram April 2019 demonstrated normal ejection fraction, mild LVH, indeterminate diastolic function, normal global left ventricular systolic function, mild to moderate right atrial enlargement, mild mitral valve regurgitation, RVSP of 36, mild tricuspid regurgitation Cyst of left kidney Cyst of left kidney FHx: cataracts GERD (gastroesophageal reflux disease) Heart palpitations HLD (hyperlipidemia) Hyperglycemia normal hemoglobin A1c of 5.22 June 2019 Obesity (BMI 30-39.9) with metabolic syndrome hemoglobin A1c 5.22 June 1999 Obstructive sleep apnea on CPAP Restless leg syndrome Retinal detachment, right with markedly decreased vision Systolic CHF Ulcerative colitis Surgical History Surgical History History of bilateral inguinal hernia repair April 2015 History of corneal transplant left eye History of left cataract extraction History of lumbar surgery History of umbilical hernia repair Family History Family History Mother Malignant melanoma Breast cancer Father Acute myocardial infarction Dementia Social History Social History Social History: Primary care physician: Dr. Eliazar Carter Code status: Full code Smoking status: Never smoker Alcohol intake: current Drinks per week: 5 Alcohol use details: 1-2 bourbon a day Substance use: never Living arrangements: with family Additional living arrangements comments: The patient lives with his of 22 years. He has 3 biologic children and 2 step children. He has an older brother with multiple medical conditions but the patient does not know what his brothers medical co
[2021-02-22 08:58] VITALS: BP 135/80; PULSE 114; RESP 23; O2SAT 94
[2021-02-22 09:08] VITALS: BP 144/85; PULSE 112; RESP 26; O2SAT 96
[2021-02-22 09:18] VITALS: BP 139/82; PULSE 107; RESP 22; O2SAT 97
--- NOTE | 2021-02-22 09:28 | SUR.PHASEII ---
Pt instructed by MD Frank to hold Eliquis until Friday. pt verbalized understanding, also told and instructions written on paperwork.
== END 2021-02-22 09:29 | disposition home or self-care (01) ==
PROVIDERS: PCP Emergency Medicine; Visit Provider Internal Medicine Gastroenterology
PROC: 0DJD8ZZ Inspection of Lower Intestinal Tract, Via Natural or Artificial Opening Endoscopic (ICD-10-PCS; CPT 45378; principal; 2021-02-22 08:30)
DX: K51.00 Ulcerative (chronic) pancolitis without complications (principal); D12.2 Benign neoplasm of ascending colon; K51.40 Inflammatory polyps of colon without complications; K62.89 Other specified diseases of anus and rectum; I48.20 Chronic atrial fibrillation, unspecified; I50.20 Unspecified systolic (congestive) heart failure; I71.4 Abdominal aortic aneurysm, without rupture; N28.1 Cyst of kidney, acquired; K21.9 Gastro-esophageal reflux disease without esophagitis; E78.5 Hyperlipidemia, unspecified; H26.9 Unspecified cataract; G47.33 Obstructive sleep apnea (adult) (pediatric); H33.21 Serous retinal detachment, right eye; Z79.01 Long term (current) use of anticoagulants; Z72.89 Other problems related to lifestyle; Z94.7 Corneal transplant status
CPT/HCPCS: 45380; 45385; 88305; J2001; J2704; J7120

== ENCOUNTER 2021-12-21 08:35 | Outpatient (CLI) | payer OTHER, SELFPAY ==
--- NOTE | ~2021-12-21 | CT_ITS ---
EXAMINATION: CTA chest abdomen DATE: 12/21/2021 09:11 INDICATION: Abdominal aortic aneurysm TECHNIQUE: Computed tomographic angiography (CTA) of the chest and abdomen was performed without and with 100 mL Omnipaque-350 intravenous contrast. Volume-rendered 3D-reconstructions of the aorta and l arge arteries were constructed by the technologist on a separate workstation. Automated exposure cont rol and iterative reconstruction technique were employed. The dose-length product was 1344.66 mGy-cm. COMPARISON: 12/19/2020 FINDINGS: Chest: Mild dependent atelectasis in both lungs. No pneumonia, pulmonary edema, pleural effusion or pneumoth orax. Mild cardiomegaly. No pericardial effusion. Fusiform ascending thoracic aortic aneurysm measuri ng up to 4.7 x 4.6 cm. This tapers to a normal caliber of 3.3 x 3.3 cm at the arch medially after the takeoff of the left subclavian artery. Normal caliber of the more distal descending thoracic aorta. No aortic dissection. No pathologically enlarged thoracic lymphadenopathy. Lucent T2 hemangioma. Fide re thoracic and lower cervical spondylosis. ABDOMEN: Diffuse hepatic steatosis with focal sparing along the gallbladder fossa. Spleen, pancreas and bilate ral adrenal glands are normal. Small region of cortical scarring at the upper pole of the left kidney . Bilateral renal cysts the largest is a 2.6 mm exophytic cyst at the lower pole of the left kidney. Bowels are unremarkable. No pathologically enlarged abdominal lymphadenopathy. Abdominal aorta is nor mal in caliber with no dissection. Mild lumbar dextroscoliosis with moderate to severe spondylosis. IMPRESSION: 1. Unchanged fusiform aneurysm of the ascending thoracic aorta measuring up to 4.7 x 4.6 cm. Normal c aliber of the descending thoracic and abdominal aorta. 2. Diffuse hepatic steatosis. 3. Cardiomegaly. Reviewed, dictated and finalized at location A. IMPRESSION: 1. Unchanged fusiform aneurysm of the ascending thoracic aorta measuring up to 4.7 x 4.6 cm. Normal caliber of the descending thoracic and abdominal aorta. 2. Diffuse hepatic steatosis. 3. Cardiomegaly.
[2021-12-21 09:04] LABS: Estimated Glomerular Filt Rate 60
== END 2021-12-21 08:36 | disposition home or self-care (01) ==
PROVIDERS: PCP Emergency Medicine; Visit Provider Internal Medicine Cardiovascular Disease
DX: I71.40 Abdominal aortic aneurysm, without rupture, unspecified (principal); K76.0 Fatty (change of) liver, not elsewhere classified; I51.7 Cardiomegaly
CPT/HCPCS: 71275; 74175; Q9967

== ENCOUNTER 2021-12-31 12:28 | Outpatient (CLI) | payer OTHER, SELFPAY ==
--- NOTE | ~2021-12-31 | CT_ITS ---
EXAMINATION: CT lumbar spine wo con DATE: 12/31/2021 12:58 INDICATION: Adolescent idiopathic scoliosis of lumbar region. Spondylolisthesis. TECHNIQUE: Computed tomography (CT) of the lumbar spine was performed without intravenous contrast. A utomated exposure control and iterative reconstruction technique were employed. The dose-length produ ct was 1168.90 mGy-cm. COMPARISON: Lumbar spine MRI 01/03/2020 FINDINGS: There is levocurvature of thoracolumbar spine. There is 16 degrees dextroscoliosis of lumba r spine. There is 3 mm retrolisthesis of L1 on L2. Vertebral body heights are normal. There is modera tely decreased disc height at L1-L2, severely decreased disc height at L2-L3, moderately decreased di sc height at L3-L4, and mildly decreased disc height at L4-L5. The following disc levels are specific ally discussed: L1-L2: The disc is bulging. There is mild bilateral facet joint osteoarthritis. There is mild right a nd moderate left neural foraminal stenosis. There is mild central canal stenosis. L2-L3: The disc is bulging. There is severe bilateral facet joint osteoarthritis. There is moderate r ight and mild left neural foraminal stenosis. There is mild central canal stenosis. L3-L4: The disc is bulging. There is severe right and moderate left facet joint osteoarthritis. There is moderate right and mild left neural foraminal stenosis. There is mild central canal stenosis. L4-L5: The disc is bulging. There is severe bilateral facet joint osteoarthritis. There is mild bilat eral neural foraminal stenosis. There is mild central canal stenosis. L5-S1: The disc does not extend beyond the endplate margin. There is severe bilateral facet joint ost eoarthritis. There is mild bilateral neural foraminal stenosis. There is no central canal stenosis. IMPRESSION: 1. Severe lumbar spondylosis, stable from 01/03/2020. 2. Lumbar dextroscoliosis. Reviewed, dictated and finalized at location B.
--- NOTE | ~2021-12-31 | MR_ITS ---
EXAMINATION: MR thoracic spine wo con DATE: 12/31/2021 14:03 INDICATION: Adolescent idiopathic scoliosis of lumbar region. Bilateral leg weakness. Chronic neck pa in. TECHNIQUE: Magnetic resonance imaging (MRI) of the thoracic spine was performed without intravenous c ontrast. COMPARISON: Chest CT 12/21/2021 FINDINGS: There is 9 degrees levocurvature of upper thoracic spine and 11 degrees dextroscoliosis of lower thoracic spine. There is mild chronic height loss of multiple vertebral bodies associated with Schmorl's nodes. There is a hemangioma in T2 vertebral body. There is mildly decreased disc height at T3-T4, severely decreased disc height at T4-T5 and T6-T7, moderately decreased disc height at T7-T8, mildly decreased disc height at T8-T9, moderately decreased disc height at T9-T10, and mildly decrea sed disc height at T10-T11. From T2-T3 through T4-T5, the discs are bulging mild central canal stenos is. At T5-T6, there is a left central extrusion with mild central canal stenosis. From T6-T7 through T9-T10, the discs are bulging with mild central canal stenosis. At T10-T11, the disc is bulging with superimposed right central extrusion with mild central canal stenosis. There is multilevel mild to mo derate facet joint osteoarthritis. On the right, there is mild neural foraminal stenosis at T2-T3, mo derate neural foraminal stenosis at T3-T4 and T4-T5, mild neural foraminal stenosis from T5-T6 throug h T7-T8, moderate neural foraminal stenosis at T8-T9, T9-T10, and T10-T11, and mild neural foraminal stenosis at T11-T12. On the left, there is mild neural foraminal stenosis at T1-T2 and T2-T3, moderat e neural foraminal stenosis from T4-T5 through T7-T8, mild neural foraminal stenosis at T8-T9 and T9- T10, and moderate neural foraminal stenosis at T10-T11. The spinal cord signal intensity is normal. IMPRESSION: 1. Severe thoracic spondylosis. 2. Scoliosis. Reviewed, dictated and finalized at location B.
--- NOTE | ~2021-12-31 | MR_ITS ---
EXAMINATION: MR cervical spine wo con DATE: 12/31/2021 14:03 INDICATION: Chronic neck pain. Adolescent idiopathic scoliosis. TECHNIQUE: Magnetic resonance imaging (MRI) of the cervical spine was performed without intravenous c ontrast. Sequences included sagittal T2-weighted FSE, sagittal T2-weighted FS FSE, sagittal T1-weight ed FSE, axial MERGE, and axial T2-weighted FSE. COMPARISON: None FINDINGS: There is 12 degrees dextroscoliosis of cervicothoracic spine. There is kyphosis of upper ce rvical spine. There is 2 mm retrolisthesis of C4 on C5 and C5 on C6 and 2 mm anterolisthesis of C7 on T1. There is a hemangioma in T2 vertebral body. There is severely decreased disc height from C3-C4 t hrough C6-C7 with endplate remodeling. The spinal cord signal intensity is normal. The following disc levels are specifically discussed: C2-C3: There is a central protrusion. There is moderate uncovertebral joint osteoarthritis. There is moderate right and severe left facet joint osteoarthritis. There is mild bilateral neural foraminal s tenosis. There is mild central canal stenosis. C3-C4: The disc is bulging. There is severe bilateral uncovertebral joint osteoarthritis. There is mo derate right and severe left facet joint osteoarthritis. There is moderate bilateral neural foraminal stenosis. There is mild central canal stenosis with ventral indentation of the spinal cord. C4-C5: The disc is bulging. There is severe bilateral uncovertebral joint osteoarthritis. There is mo derate right and severe left facet joint osteoarthritis. There is moderate bilateral neural foraminal stenosis. There is mild central canal stenosis with ventral indentation of the spinal cord. C5-C6: The disc is bulging. There is severe bilateral uncovertebral joint osteoarthritis. There is mi ld bilateral facet joint osteoarthritis. There is moderate bilateral neural foraminal stenosis. There is mild central canal stenosis with ventral indentation of the spinal cord. C6-C7: The disc is bulging. There is severe bilateral uncovertebral joint osteoarthritis. There is mi ld right and moderate left facet joint osteoarthritis. There is mild bilateral neural foraminal steno sis. There is mild central canal stenosis. C7-T1: The disc does not extend beyond the endplate margin. There is no uncovertebral joint osteoarth ritis. There is moderate right and severe left facet joint osteoarthritis. There is mild left neural foraminal stenosis. There is no central canal stenosis. IMPRESSION: 1. Severe cervical spondylosis. 2. Cervicothoracic dextroscoliosis. Reviewed, dictated and finalized at location B.
== END 2021-12-31 12:29 | disposition home or self-care (01) ==
PROVIDERS: PCP Emergency Medicine
DX: M41.126 Adolescent idiopathic scoliosis, lumbar region (principal); R26.89 Other abnormalities of gait and mobility; M51.36 Other intervertebral disc degeneration, lumbar region; M43.10 Spondylolisthesis, site unspecified; M47.896 Other spondylosis, lumbar region; M47.894 Other spondylosis, thoracic region; M41.9 Scoliosis, unspecified; M47.892 Other spondylosis, cervical region
CPT/HCPCS: 72131; 72141; 72146

== ENCOUNTER → 2022-08-08 10:18 | Outpatient (CLI) | payer OTHER, SELFPAY ==
--- NOTE | ~2022-08-08 | US_ITS ---
Abdominal Sonogram: Real-time sonographic imaging of the abdomen was performed. Clinical History: Fatty liver Findings: The liver appears echogenic, with no evidence of mass lesion or bile duct dilatation. Main portal vein demonstrates normal direction of flow. The spleen is normal in size without evidence of focal lesion. The gallbladder is well distended, and appears normal with no evidence of gallstone or wall thickening. The common bile duct measures 4 mm. The visualized pancreas, aorta, and IVC are un remarkable. The right kidney measures 12.3 cm in length and the left kidney measures 12.3 cm. There is no hydronephrosis or renal calculus. Impression: Diffuse fatty infiltration of the liver. Reviewed, dictated and finalized at location . Impression: Diffuse fatty infiltration of the liver.
== END ==
DX: K76.0 Fatty (change of) liver, not elsewhere classified (principal)
CPT/HCPCS: 76700

== ENCOUNTER 2022-11-14 08:35 | Outpatient (CLI) | payer OTHER, SELFPAY ==
--- NOTE | ~2022-11-14 | NM_ITS ---
EXAMINATION: NM kate stress w perfusion DATE: 11/14/2022 10:58 INDICATION: Chronic atrial fibrillation TECHNIQUE: Rest images were obtained following intravenous administration of 9 mCi Tc99m tetrofosmin (Myoview). The patient was infused intravenously with Lexiscan (Regadenoson). Then, 32 mCi Tc99m tetr ofosmin (Myoview) was administered intravenously, and stress images were obtained. Data was reconstru cted into short axis and horizontal and vertical long axis SPECT images. Gated SPECT images were also obtained. COMPARISON: None. FINDINGS: There is no definite reversible or fixed perfusion abnormality to suggest ischemia or infar ction. There is normal left ventricular chamber size, wall motion and ejection fraction. Left ventr icular ejection fraction measures 59%. IMPRESSION: 1. Normal myocardial perfusion at rest and during stress. 2. Left ventricular ejection fraction measuring 59%. Reviewed, dictated and finalized at location A.
--- NOTE | 2022-11-14 09:15 | EST_ITS ---
Patient Info Name: Humberto Moreau Age: 67 years : 1955 Gender: Male Ht: 70 in Wt: 238 lbs BSA: 2.35 m2 Exam Date: 11/14/2022 9:47 AM Exam Location: [facility] Stress Patient Status: Outpatient Admit Date: 11/14/2022 Staff Ordering Physician: Eliazar Carter MD Attending Provider: Eliazar Carter MD Exercise Technologist: Cara Mauro RDCS Nurse: ENRIQUETA RODRIGUEZ NP Exam Type: CA stress kate w NM Study Info Indications R06.02 - Shortness of breath I48.20 - AFIB A regadenoson stress test was performed. Summary 1. Atrial fibrillation with low QRS voltage. 2. No changes noted following Lexiscan injection. 3. Clinically and electrocardiographically unremarkable Lexiscan stress test. 4. Rate controlled atrial fibrillation during this exam. 5. Myocardial perfusion study to be reported by Radiology. Protocol: Lexiscan Stress ECG Details Stage: REST Duration (min): 1 min : 35 sec HR (bpm): 84 SBP (mmHg): 130 DBP (mmHg): 94 Stage: REST Duration (min): 7 min : 18 sec HR (bpm): 84 SBP (mmHg): 130 DBP (mmHg): 94 Stage: STAGE 1 Duration (min): 0 min : 59 sec HR (bpm): 95 SBP (mmHg): 133 DBP (mmHg): 92 Stage: RECOVERY Duration (min): 1 min : 0 sec HR (bpm): 92 SBP (mmHg): 133 DBP (mmHg): 92 Stage: RECOVERY Duration (min): 2 min : 0 sec HR (bpm): 96 SBP (mmHg): 133 DBP (mmHg): 92 Stage: RECOVERY Duration (min): 3 min : 0 sec HR (bpm): 99 SBP (mmHg): 123 DBP (mmHg): 88 Stage: RECOVERY Duration (min): 3 min : 4 sec HR (bpm): 99 SBP (mmHg): 123 DBP (mmHg): 88 Rest HR: 84 bpm Peak HR: 107 bpm Rest Sys BP: 130 mmHg Peak Sys BP: 133 mmHg Max Pred HR: 152 bpm % Max Pred HR: 70 % Target HR: 129 bpm Max RPP: 14,231 bpm*mmHg Termination Reason: Completed protocol Total Time: 1 min : 0 sec Rest Gambino BP: 94 mmHg Peak Gambino BP: 92 mmHg Total Dose: 0.4 mg Resting ECG Atrial fibrillation with low QRS voltage. Stress ECG No changes noted following Lexiscan injection. Report Signatures
== END 2022-11-14 08:36 | disposition home or self-care (01) ==
PROVIDERS: PCP Emergency Medicine; Visit Provider Emergency Medicine
DX: I48.20 Chronic atrial fibrillation, unspecified (principal); R06.02 Shortness of breath
CPT/HCPCS: 78452; 93017; A9502; J2785

== ENCOUNTER → 2023-03-14 11:36 | Outpatient (CLI) | payer OTHER, SELFPAY ==
--- NOTE | ~2023-03-14 | US_ITS ---
US renal BI 03/14/2023 12:00 Procedure: Realtime transabdominal ultrasound of the kidneys and bladder. Indication: Disorder of the urinary bladder and kidney Comparison: CT dated 12/21/2021. Findings: Renal echotexture is normal bilaterally without hydronephrosis, contour deforming mass or r enal calculus. There are bilateral renal cysts, largest in the left kidney measuring 2.9 cm. The righ t kidney measures 10.8 cm and left kidney measures 11.2 cm. Bladder within normal limits. Impression: 1: Bilateral renal cysts, largest in the left kidney inferiorly measuring 2.9 cm. Reviewed, dictated and finalized at location A. R CLERK Impression: 1: Bilateral renal cysts, largest in the left kidney inferiorly measuring 2.9 c m.
== END ==
PROVIDERS: Visit Provider Emergency Medicine
DX: N28.1 Cyst of kidney, acquired (principal); N28.9 Disorder of kidney and ureter, unspecified
CPT/HCPCS: 76775

== ENCOUNTER 2023-05-09 08:31 | Outpatient (CLI) | payer OTHER, SELFPAY ==
--- NOTE | ~2023-05-09 | CT_ITS ---
EXAMINATION: CTA chest DATE: 05/09/2023 09:02 INDICATION: Aneurysm of the ascending aorta without rupture TECHNIQUE: Computed tomographic angiography (CTA) of the chest was performed with 100 mL Omnipque-350 intravenous contrast. Maximum intensity projection 3D-reconstructions of the aorta and other arterie s were constructed by the technologist on a separate workstation. The dose-length product (DLP) was 1 105.79 mGy-cm. Automated exposure control and iterative reconstruction technique were employed. COMPARISON: 12/21/2021 FINDINGS: The ascending aorta measures 4.2 cm at the sinuses of Valsalva and 3.7 cm at the sinotubula r junction. There is stable fusiform enlargement of the ascending aorta measuring 4.6 x 4.5 cm at the level of the main pulmonary artery. There is no dissection. The descending aorta is normal in size. Cardiomegaly is noted. There is mild dependent atelectasis. No pleural effusion or pneumothorax. Ther e are no pathologically enlarged thoracic lymph nodes. There is severe thoracic spondylosis. Cysts of the kidneys are again noted. IMPRESSION: 1. Stable fusiform aneurysm of the ascending thoracic aorta measuring up to 4.6 cm. No dissection. Reviewed, dictated and finalized at location B. [employer]
[2023-05-09 08:58] LABS: Estimated Glomerular Filt Rate > 60
== END 2023-05-09 08:32 | disposition home or self-care (01) ==
PROVIDERS: PCP Emergency Medicine; Visit Provider Internal Medicine Cardiovascular Disease
DX: I71.21 Aneurysm of the ascending aorta, without rupture (principal)
CPT/HCPCS: 71275; Q9967

== ENCOUNTER 2024-05-28 07:50 | Outpatient (CLI) | payer OTHER, SELFPAY ==
--- NOTE | ~2024-05-28 | MR_ITS ---
EXAMINATION: MR brain/brain stem wo con DATE: 05/28/2024 08:26 INDICATION: Other amnesia. TECHNIQUE: Magnetic resonance imaging (MRI) of the brain and brainstem was performed without intraven ous contrast. COMPARISON: Brain MRI 06/15/2013 FINDINGS: There are scattered areas of nonspecific increased T2-weighted signal intensity in the cere bral white matter and jefferson. There is no intracranial hemorrhage, acute infarction, or abnormal intrac ranial mass lesion. The ventricles are normal in size. There are likely changes of ocular lens replac ement surgeries. There is mild mucosal thickening in the paranasal sinuses. The mastoid air cells are normal. IMPRESSION: 1. Moderate nonspecific cerebral white matter disease and pontine disease, which likely represents ch ronic small vessel ischemic disease, worsened from 06/15/2013. Reviewed, dictated and finalized at location L. IMPRESSION: 1. Moderate nonspecific cerebral white matter disease and pontine disease, whic h likely represents chronic small vessel ischemic disease, worsened from 06/16/19 14.
== END 2024-05-28 07:51 | disposition home or self-care (01) ==
PROVIDERS: PCP Emergency Medicine; Visit Provider Emergency Medicine
DX: R41.3 Other amnesia (principal); R90.82 White matter disease, unspecified
CPT/HCPCS: 70551

== ENCOUNTER 2024-12-01 13:22 | Outpatient (CLI) | payer OTHER, SELFPAY ==
--- NOTE | ~2024-12-01 | US_ITS ---
EXAMINATION: US carotid duplex BI DATE: 12/01/2024 14:02 INDICATION: Other specified symptoms and signs involving the circulatory system. TECHNIQUE: Grayscale, color Doppler, and pulsed Doppler images of the cervical carotid arteries were obtained. The degree of vessel stenosis is placed in one of the following categories: normal, <50%, 50-69%, >=70% but less than near- occlusion, near-occlusion, or total occlusion. Note that percent stenosis relative to normal distal artery lumen diameter is indirectly measured from velocity measurements as described by Uziel, et al. Radiology 2003; 229:340-346. COMPARISON: Ultrasound 06/15/2013 FINDINGS: RIGHT: The right common carotid artery (CCA) peak systolic velocity (PSV) is 65 cm/s. The right internal carotid artery (ICA) PSV is 36 cm/s. The right ICA end- diastolic velocity (EDV) is 18 cm/s. The right ICA/CCA PSV ratio is 0.7. Grayscale and color Doppler images yield an estimate of <50% diameter reduction from plaque in the ICA. There is antegrade flow in the right vertebral artery. LEFT: The left CCA PSV is 56 cm/s. The left ICA PSV is 66 cm/s. The left ICA EDV is 16 cm/s. The left ICA/CCA PSV ratio is 1.2. Grayscale and color Doppler images yield an estimate of <50% diameter reduction from plaque in the ICA. There is antegrade flow in the left vertebral artery. IMPRESSION: 1. <50% stenosis in the right internal carotid artery. 2. <50% stenosis in the left internal carotid artery. Reviewed, dictated and finalized at location E.
--- OUTSIDE RECORDS SUMMARY | 2024-12-01 13:37 | XMS_ITS | Encounter Summary ---
Author Organization [facility] Address [address] [address] Care Team Providers Care Criminal Justice Teacher Name Role Phone Eliazar Carter MD Primary Care Provide r Eliazar Carter MD Primary Care Provide r Francisco Salazar MD Unavailable [phone] Mayonr Gant OD Unavailable Morgan Beckwith MD Unavailable [phone] Angelito Day MD Unavailable Angel Salas MD Unavailable Encounter Details Date Type Department Care Team (Late st Contact Info) Description 05/14/2016 Orders Only [facility] Provider, MD Nichol [facility] [place] [address] Social History Tobacco Use Types Packs/Day Years Used Date Smoking Tobacco: Never Alcohol Use Standard Drinks/Week Comments Yes 0 (1 standard drink = 0.6 oz pur e alcohol) Sex and Gender Information Value Date Recorded Sex Assigned at Not on file Legal Sex Male 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 us Historical Provider MD [facility] RELL CLEMENT Final Result documented in this encounter Visit Diagnoses Not on filedocumented in this encounter Care Teams Criminal Justice Teacher Relationship Specialty Start Date End Date Eliazar Carter MD [address] [place] [address] PCP - General 06/14/16 Eliazar Carter MD [address] [place] [address] PCP - General 02/03/14 06/13/16 Francisco Salazar MD [address] [facility] [address] [place] [address] Interventional Cardiology 08/03/16 Maynor Gant OD [address] [facility] [address] [place] [address] Primary Eye Care Provider Optometry 11/11/19 Morgan Beckwith MD [address] [place] [address] Consulting Physician Ophthalmology 11/11/19 Angelito Day MD [address] [place] [address] Surgeon Ophthalmology 11/11/19 Angel Salas MD [address] [place] [address] Painter Supervisor Cardiology 06/17/22 documented as of this encounter
--- OUTSIDE RECORDS SUMMARY | 2024-12-01 13:37 | XMS_ITS | Encounter Summary ---
Author Organization [facility] Address [address] [facility] [address] [place] [address] Care Team Providers Care Ladies Underwear Operator Name Role Phone Eliazar Carter MD Primary Care Provide r Francisco Salazar MD Unavailable [phone] Maynor Gant OD Unavailable Morgan Beckwith MD Unavailable [phone] Angelito Day MD Unavailable [phone] Angel Salas MD Unavailable Encounter Details Date Type Department Care Team (Late st Contact Info) Description 06/24/2016 Orders Only [facility] Provider, MD Nichol [address] [place] [address] Social History Tobacco Use Types Packs/Day Years Used Date Smoking Tobacco: Never Alcohol Use Standard Drinks/Week Comments Yes 0 (1 standard drink = 0.6 oz pur e alcohol) Sex and Gender Information Value Date Recorded Sex Assigned at Not on file 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 us Historical Provider [facility] PROCE DURES Final Result * CARDIOLOGY REPORT (06/24/2016) Anatomical Region Laterality Modality Other Narrative 06/24/2016 Ordered by an unspecified provider. us Historical Provider [facility] PROCE DURES Final Result documented in this encounter Visit Diagnoses Not on filedocumented in this encounter Care Teams Ladies Underwear Operator Relationship Specialty Start Date End Date Eliazar Carter MD [address] [place] [address] PCP - General 06/14/16 Francisco Salazar MD [address] [facility] [address], [place] [address] Interventional Cardiology 08/03/16 Maynor Gant OD [address] [facility] [address], [place] [address] Primary Eye Care Provider Optometry 11/11/19 Morgan Beckwith MD [address] [place] [address] Consulting Physician Ophthalmology 11/11/19 Angelito Day MD [address] [place] [address] Surgeon Ophthalmology 11/11/19 Angel Salas MD [address] [place] [address] Environmental Services Floor Tech Cardiology 06/17/22 documented as of this encounter
--- OUTSIDE RECORDS SUMMARY | 2024-12-01 13:37 | XMS_ITS | Clinical Summary ---
Author Organization [facility] Address [address] [place] [address] Care Team Providers Care Leaf Tinner Name Role Phone Holger Allen MD Primary Care Provider [phone] [facility],non-owned Affiliates and Associated Physician Practices is amultiple site organization consisting of ambulatory clinics and hospital sitesin [place], [place], [place] and [place]. This disclosure is being madepursuant to the Care Everywhere program and may not contain all information available regarding this patient. Last updated 17.[facility] RECESS. 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 Gender Identity Not on file Sexual Orientation Not on file Plan of Treatment Health Maintenance Due Date Last Done Comments COLOGUARD (AGES 45-75) - COL ON CA SCREENING 1954 COLON MONITORING 1954 COLONOSCOPY - COLON CA SCREENING 1954 CT COLONOGRAPHY - COLON CA SCREENING 1954 Colorectal Cancer Screening 1954 FIT - COLON CA SCREENING 1954 FLEX SIG - COLON CA SCREENING 1954 LIPID TESTING 1954 HEPATITIS C SCREENING 01/03/1972 DTAP/TDAP/TD VACCINES (1 - Tdap) 1973 PNEUMOCOCCAL VACCINE 50+ (1 of 1 - PCV) 01/08/2004 ZOSTER VACCINE (1 of 2) 01/08/2004 DEPRESSION SCREENING 03/17/2024 COVID-19 VACCINE (1 - 2023-2 5 season) 2024 INFLUENZA VACCINE (#1) 2024 Respiratory Syncytial Virus (RSV) Vaccine Pt: or over 60 yrs (1 - 1-dose 75+ series) 2029 HEPATITIS B VACCINE Aged Out No longe r eligible based on patient's age to complete this topic HIB VACCINE Aged Out No longer eligi ble based on patient's age to complete this topic HPV VACCINE Aged Out No longer eligi ble based on patient's age to complete this topic MENINGOCOCCAL (Group B) VACC INE SHARED DECISION-MAKING Aged Out No longer eligibl e based on patient's age to complete this topic MENINGOCOCCAL GROUPS A/C/Y/W VACCINE Aged Out No longer eligible b ased on patient's age to complete this topic Insurance [facility] MEDICARE Care Teams Leaf Tinner Relationship Specialty Start Date End Date Holger Allen MD [address] [place] [address] PCP - General 09/08/12
--- OUTSIDE RECORDS SUMMARY | 2024-12-01 13:38 | XMS_ITS | Clinical Summary ---
Author Organization [facility] Address [address] [place] [address] Care Team Providers Care Coil Wrapper Name Role Phone Eliazar Carter MD Primary Care Provide r Francisco Salazar MD Unavailable [phone] Maynor Gant OD Unavailable Morgan Beckwith MD Unavailable [phone] Angelito Day MD Unavailable [phone] Angel Salas MD Unavailable Allergies No known active allergies Medications balsalazide (COLAZAL) 750 mg capsule take 3 capsule by oral route 3 times every day for 8 weeks 0 0 07/23/19 14 Active metoprolol (LOPRESSOR) 100 mg tablet Take 1 tablet (100 mg total) by mouth 2 (two) times a day Take with 25 mg tablet to total 125 mg 2 times daily of metoprolol. 60 tablet 11 06/21/19 21 Active Additional Information Patient taking differently:100 mg oral 2 times daily,Total of 150 mg BID, Indications: hypertension, Informant: Self, Reported on 12/18/2022 rOPINIRole (REQUIP) 3 mg tabletIndications: Restless Legs Syndrome Take 1 tablet (3 mg total) by mouth 3 (three) times a day 12/23/19 21 Active ZINC ORALIndications:holman pplement Take 1 tablet by mouth nightly Active multivit-min/danie us fumarate (MULTI VITAMIN ORAL)Indications:s upplement Take 1 tablet by mouth nightly Active semaglutide (Ozempic) 2 mg/dose (8 mg/3 mL) pen injector injectionIndicatio ns:weight loss Inject 2 mg under the skin once a week Active acetaminophen 500 mg capsuleIndications :Pain,Pain Take 2 capsules (1,000 mg total) by mouth every 6 (six) hours as needed for pain 30 tablet 01/11/20 23 Active gabapentin (NEURONTIN) 100 mg capsuleIndications :DDD (degenerative disc disease), lumbar,Spinal stenosis of thoracic region TAKE 1 CAPSULE(100 MG) BY MOUTH EVERY 8 HOURS 90 capsule 04/15/19 24 Active albuterol HFA (PROVENTIL HFA,VENTOLIN HFA,PROAIR HFA) 90 mcg/actuation inhaler INHALE 1 PUFF BY MOUTH EVERY 4 HOURS NEEDED FOR SHORTNESS OF BREATH OR WHEEZING 05/21/19 24 Active apixaban (Eliquis) 5 mg tablet TAKE 1 TABLET BY MOUTH TWICE A DAY 180 tablet 3 10/15/19 24 Active metoprolol tartrate (LOPRESSOR) 50 mg immediate release tablet TAKE 1 TABLET(50 MG) BY MOUTH TWICE DAILY 180 tablet 2 03/29/19 25 Active atorvastatin (LIPITOR) 20 mg tabletIndications: Mixed hyperlipidemia TAKE 1 TABLET(20 MG) BY MOUTH DAILY 90 tablet 3 04/27/19 25 Active diltiazem (TIAZAC) 120 mg 24 hr capsule TAKE 1 CAPSULE BY MOUTH EVERY MORNING 90 capsule 2 08/05/19 25 Active Active Problems Problem Noted Date Diagnosed Date Metabolic disorder 08/01/2024 Dietary counseling 08/01/2024 Exercise counseling 08/01/2024 Mixed hyperlipidemia 08/01/2024 Weight gain due to medication 08/01/2024 Nonrheumatic mitral valve regurgitation 04/19/19 25 Status post lumbar spine xiomara rob for decompression of spinal cord 01/06/2023 GERD (gastroesophageal reflux disease) 3 Spinal stenosis of thoracic region with radiculo dinesh 06/17/2022 Overview (06/17/2022): Added automatically from request for surgery [id number] Spondylolisthesis of lumbar region 06/17/2022 Overview (06/17/2022): Added automatically from request for surgery [id number] Lumbar radiculopathy 06/17/2022 Overview (06/17/2022): Added automatically from request for surgery [id number] Encounter for weight management 07/02/2021 Claudication 11/15/2019 Mixed hyperlipidemia 02/16/2018 Permanent atrial fibrillation 02/17/2017 Assessment & Plan (02/16/2018 9:57 AM UNIFORM DESIGNER): Increase from 75 mg b.i.d. To 100 mg in the morning and 75 mg at night. Continue aspirin. Not a candidate for anticoagulation given ulcerative colitis and previous GI bleed. Assessment & Plan (02/17/2017 10:04 AM UNIFORM DESIGNER): Asymptomatic. Rate controlled. Not daryn for anticoagulation given his previous episodes of GI bleeding. Continue aspirin 81 daily. Patient continues to drink alcohol Ascending aortic aneurysm 08/19/2016 Assessment & Plan (02/16/2018 9:57 AM UNIFORM DESIGNER): Will likely to repeat a CT scan next year. On previous CT scan there was 1.5 cm nodule on the left adrenal gland. I instructed patient to talk to his primary care doctor about this nodule. Assessment & Plan (02/17/2017 10:00 AM UNIFORM DESIGNER): Ascending aortic aneurysm measures 4.4 cm compared to 4.1 cm in 2014. Continue to observe. Will benefit from repeating imaging in 2 years from now BMI 39.0-39.9,adult 06/03/2016 Overview (08/09/2016): Obesity (BMI 30-39.9) Assessment & Plan (02/16/2018 9:59 AM UNIFORM DESIGNER): Patient has gained 20 lb over the last 1 year. Counseled patient about the importance of cutting down calories to help him lose weight and regular exercise. 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), right eye, c/b optic atrophy OD 04/17/2013 Overview (11/18/2019): c/b optic atrophy OD Cataract, right eye Pseudophakia of left eye RAY on CPAP Overview (11/11/2019): Sleep Apnea, CPAP Hypertension BMI 40.0-44.9, adult CHF (congestive heart failure) Restless leg syndrome PVD (posterior vitreous detachment), left eye Optic atrophy of right eye Immunizations Immunization Administration Dates Next Due Influenza, Quadrivalent, Hig h Dose, Preservative Free, Intrr 03/02/2021 Influenza, Trivalent, IM (MDV) 12/10/2014 Tdap 12/10/2014 ZOSTER Recombinant 09/11/2021,06/05/2021 Surgical History Surgery Date Site/Laterality Comments TOTAL HIP ARTHROPLASTY 03/17/2010 - 03/16/2011 Right DESCEMETS STRIPPING AUTOMATED ENDOTHELIAL KERATOPLASTY 07/28/[address] Angelito Day CATARACT EXTRACTION W/ INTRAOCULAR LENS IMPLANT 02/02/2018 Left INTRAOCULAR LENS EXCHANGE 05/25/2019 Left repositioning of IOL by Dr. 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 in Apr 2013 Cataracts, both eyes Pseudophakia of left eye RAY on CPAP Sleep Apnea, CPA P Chronic atrial fibrillation with RVR (HCC) Hypertension BMI 40.0-44.9, adult (HCC) CHF (congestive heart failure) (HCC) Cyst of left kidney Restless leg syndrome Hyperlipidemia Bullous keratopathy of left eye s/p DSAEK on 07/28/2019 PVD (posterior vitreous deta chment), left eye Ascending aortic aneurysm 08/19/2016 ectasi as of ascending aorta measuring 4.6 cm on imaging Apr 2019 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), right eye, c/b optic atrophy OD 04/2013 c/b optic atrophy OD Family History Medical History Relation Name Comments Dementia Father Heart attack Father Breast cancer Mother Melanoma Mother Anesthesia problems Neg Hx Relation Name Status Comments Father Alive Mother Social History Tobacco Use Types Packs/Day Years Used Date Smoking Tobacco: Never Passive Smoke Exposure: Past Smokeless Tobacco: Never Tobacco Cessation:Counseling Given: Not Answered Alcohol Use Standard Drinks/Week Comments Yes 0 (1 standard drink = 0.6 oz pur e alcohol) Drinks 2-3 drinks every day AUDIT-C Answer Date Recorded Q1: How often do you have a drink containing alc ohol? 2-3 times a week 01/06/2023 Q2: How many drinks containi ng alcohol do you have on a typical day when you are drinking? 1 or 2 01/06/2023 Q3: How often do you have si x or more drinks on one occasion? Never 01/06/2023 Personal Safety Answer Date Recorded Have you ever been in or are you currently in a harmful physical or emotional relationship or is someone making you feel afraid or unsafe? Denies 01/06/2023 Sex and Gender Information Value Date Recorded Sex Assigned at Not on file Legal Sex Male 3:14 AM UNIFORM DESIGNER Gender Identity Not on file Sexual Orientation Not on file Obstetrics History Last Filed Vital Signs Vital Sign Reading Time Taken Comments Blood Pressure 127/87 06/22/2024 9:53 AM CDT Pulse 90 06/22/2024 9:53 AM CDT Temperature 36.4 C (97.5 F) 01/10/2023 7:22 AM CDT Respiratory Rate 16 01/10/2023 7:22 AM CDT Oxygen Saturation 96% 06/22/2024 9:53 AM CDT Inhaled Oxygen Concentration - - Weight 118.8 kg (262 lb) 06/22/2024 9:53 AM CDT Height 177.8 cm (5' 10) 06/22/2024 9:53 AM CDT Body Mass Index 37.59 06/22/2024 9:53 AM CDT Plan of Treatment Health Maintenance Due Date Last Done Comments Colon Cancer Screening-Colonoscopy 1954 Depression Screening 1954 Hepatitis C Screening 1954 Hepatitis B Screening 01/08/1972 Pneumococcal vaccine 65+ (1 of 1 - PCV) 01/08/2004 Well Visit 65+ 2019 Fall Risk Assessment 01/11/2024 01/10/2023 Covid-19 Vaccine ( season) 2024 03/29/2021, 05/20/2020, 04/28/2020 Influenza Vaccine (#1) 2024 03/02/2021, 2014 DTaP/Tdap/Td Vaccine (2 - Td or Tdap) 12/10/2024 Zoster Vaccine Completed 09/11/2021, 06/05/2021 Medical Devices Implanted Type Area Chief Technology Officer Device Identifier Shelf Expiration Date Model / Serial / Lot Abyrx Hemasorb Filled Applicator Surgical Ray-351 - [id number] Implanted:Qty: 1 on 01/06/2023 by Felipe Perrin MD at [facility] N/A: Spine Lumbar Abyrx RAY-351 / / Depuy Synthes Spine Mobile Expedium Slot Spine Mini Right Offset Connector Regan [id number] - [id number] Implanted:Qty: 1 on 01/06/2023 by Felipe Perrin MD at [facility] Depuy Synthes Spine [id number] / / Depuy Synthes Spine Mobile Expedium Slot Spine Straight Connector Regan Titanium Ddv [id number] - [id number] Implanted:Qty: 2 on 01/06/2023 by Felipe Perrin MD at [facility] Depuy Synthes Spine [id number] / / Depuy Synthes Spine 5.5mm Offset Twister Wire Titanium Latex Free [id number] - [id number] Implanted:Qty: 6 on 01/06/2023 by Felipe Perrin MD at [facility] Depuy Synthes Spine [id number] / / Depuy Synthes Spine Expedium Viper 2 5.5mm 480mm Straight Regan Spinal [id number] - [id number] Implanted:Qty: 2 on 01/06/2023 by Felipe Perrin MD at [facility] Depuy Synthes Spine [id number] / / Depuy Synthes Spine Mobile Expedium 2 Spine Wire Fixation Cocr Titanium [id number] - [id number] Implanted:Qty: 1 on 01/06/2023 by Felipe Perrin MD at [facility] Depuy Synthes Spine [id number] / / Medtronic Inc Kit Graft Bone Sponge Xlg Infuse 8cc Granules [id number] - [id number] Implanted:Qty: 1 on 01/06/2023 by Felipe Perrin MD at [facility] Medtronic Inc [id number] 05/15/2024 [id number] / / [id number] Medtronic Inc Kit Graft Bone Sponge Xlg Infuse 8cc Granules [id number] - [id number] Implanted:Qty: 1 on 01/06/2023 by Felipe Perrin MD at [facility] Medtronic Inc [id number] 05/15/2024 [id number] / / [id number] Allosource Crushed Chip Frozen Graft 90ml Bone Cancellous [id number] - [id number] Implanted:Qty: 1 on 01/06/2023 by Felipe Perrin MD at [facility] N/A: Spine Lumbar Allosource 08/27/2027 [id number] / / [id number] Allosource Crushed Chip Frozen Graft 90ml Bone Cancellous [id number] - [id number] Implanted:Qty: 1 on 01/06/2023 by Felipe Perrin MD at [facility] N/A: Spine Lumbar Allosource 08/27/2027 [id number] / / [id number] Depuy Synthes Spine Mobile Expedium 6mm 50mm Fix [place] Spinal Titanium [id number] - [id number] Implanted:Qty: 8 on 01/06/2023 by Felipe Perrin MD at [facility] Depuy Synthes Spine [id number] / / Depuy Synthes Spine Mobile Expedium 7mm 50mm Fix [place] Spinal Titanium [id number] - [id number] Implanted:Qty: 2 on 01/06/2023 by Felipe Perrin MD at [facility] Depuy Synthes Spine [id number] / / Depuy Synthes Spine Mobile Expedium [place] Spinal Nut Lock Titanium [id number] - [id number] Implanted:Qty: 10 on 01/06/2023 by Felipe Perrin MD at [facility] Depuy Synthes Spine [id number] / / Depuy Synthes Spine Mobile Expedium Slot Spine Mini Left Offset Connector Regan Titanium [id number] - [id number] Implanted:Qty: 1 on 01/06/2023 by Felipe Perrin MD at [facility] Depuy Synthes Spine [id number] / / Insurance [address] [facility] Advance Directives For more information, please contact: [phone] * Full Code (Latest Code Status on File) Date Activated Date Inactivated Comments 01/06/2023 2:51 PM 01/10/2023 9:16 PM Care Teams Coil Wrapper Relationship Specialty Start Date End Date Eliazar Carter MD [address] [place] [address] PCP - General 06/14/16 Francisco Salazar MD [address] [place] [address] Interventional Cardiology 08/03/16 Maynor Gant, WHITLEY [address] [place] [address] Primary Eye Care Provider Optometry 11/11/19 Morgan Beckwith MD [address] [place] [address] Consulting Physician Ophthalmology 11/11/19 Angelito Day MD [address] [place] [address] Surgeon Ophthalmology 11/11/19 Angel Salas MD [address] [place] [address] Electrical Lineman Cardiology 06/17/22
== END 2024-12-01 13:23 | disposition home or self-care (01) ==
PROVIDERS: PCP Emergency Medicine; Visit Provider Psychiatry & Neurology Neurology
DX: R09.89 Other specified symptoms and signs involving the circulatory and respiratory systems (principal); I65.21 Occlusion and stenosis of right carotid artery; I65.22 Occlusion and stenosis of left carotid artery
CPT/HCPCS: 93880